=== PATIENT | female | born 1955 | race African-American/Black ===

== ENCOUNTER 2016-10-10 10:10 | Outpatient (CLI) | payer MEDICARE, OTHER ==
[~2016-10-10 10:10] MED LIST: ALEN1TAB3 PO; ASPI81TA2 PO; CEFE1FRO IV; FERR325T28 PO; GENT30CR TP
== END 2016-10-10 23:59 | disposition home or self-care (01) ==
LOC: WOU 10:10
PROVIDERS: ATTEND Podiatrist Foot & Ankle Surgery
DX: I89.0 Lymphedema, not elsewhere classified (principal); I87.313 Chronic venous hypertension (idiopathic) with ulcer of bilateral lower extremity; L97.821 Non-pressure chronic ulcer of other part of left lower leg limited to breakdown of skin; L97.811 Non-pressure chronic ulcer of other part of right lower leg limited to breakdown of skin; E66.9 Obesity, unspecified; Z68.35 Body mass index [BMI] 35.0-35.9, adult; I10 Essential (primary) hypertension; E05.90 Thyrotoxicosis, unspecified without thyrotoxic crisis or storm
CPT/HCPCS: A6253; A6402

== ENCOUNTER 2016-11-21 09:40 | Outpatient (CLI) | payer MEDICARE, OTHER | END 2016-11-21 23:59 | disposition left against medical advice (07) | LOC: WOU 09:40 | PROVIDERS: ATTEND Podiatrist Foot & Ankle Surgery | DX: I87.323 Chronic venous hypertension (idiopathic) with inflammation of bilateral lower extremity (principal); L03.115 Cellulitis of right lower limb; L03.116 Cellulitis of left lower limb; I89.0 Lymphedema, not elsewhere classified; I10 Essential (primary) hypertension; E03.9 Hypothyroidism, unspecified; M81.0 Age-related osteoporosis without current pathological fracture; G70.9 Myoneural disorder, unspecified; Z79.899 Other long term (current) drug therapy; L29.9 Pruritus, unspecified | CPT/HCPCS: A6253; A6402; G0463 ==

== ENCOUNTER 2016-11-27 10:44 | Inpatient (IN) | payer MEDICARE, OTHER ==
[~2016-11-27] VITALS: Ht 170.2 cm; Wt 105.2 kg
--- NOTE | 2016-11-27 10:50 | NUR ---
pt ambulatory to er bed 12. came from wound care center and was sent by wound doctor to er for wound eval. presents to er w/ ble wound. foul odor w/ drainage noted. gowned and placed on monitor. vss. awaiting md connelly.
--- NOTE | 2016-11-27 11:17 | NUR ---
dr moody at bedside for eval.
[2016-11-27] MEDS ORDERED: IV NS 0.9% 1,000 ML BAG IV ONE (11:30)
[2016-11-27 11:50] LABS: BASOPHILS # (AUTO) 0.4 /CMM (0.0-0.2); BASOPHILS % (AUTO) 4.5 % (0.0-2.0); EOSINOPHILS # (AUTO) 0.7 /CMM (0.0-0.7); EOSINOPHILS % (AUTO) 7.1 % (0.0-6.0); HEMATOCRIT 28 % (33-45); HEMOGLOBIN 9.1 g/dL (11.5-14.8); LYMPHOCYTES # (AUTO) 1.7 /CMM (0.8-4.8); MEAN CORPUSCULAR HEMOGLOBIN 25 PG (26.0-33.0); MEAN CORPUSCULAR HGB CONC 33 g/dl (31.0-36.0); MEAN CORPUSCULAR VOLUME 76 fL (82-100); MONOCYTES # (AUTO) 0.8 /CMM (0.1-1.30); MONOCYTES % (AUTO) 8.2 % (2.0-12.0); NEUTROPHILS # (AUTO) 6.2 /CMM (1.8-8.9); NEUTROPHILS % (AUTO) 63.2 % (43.0-81.0); PLATELET COUNT (AUTO) 276 /CMM (150-450); RDW COEFFICIENT OF VARIATION 16.4 (11.5-15.0); RED BLOOD CELL COUNT(AUTO) 3.65 MIL/uL (4.0-5.2); WHITE BLOOD COUNT (AUTO) 9.8 K/uL (4.3-11.0)
--- NOTE | 2016-11-27 11:51 | NUR ---
PATIENT ASSIGNED TO MS 204-1
[2016-11-27 11:59] LABS: CALCIUM, SERUM 8.7 mg/dL (8.5-10.1); CARBON DIOXIDE 22 mmol/L (21-32); CHLORIDE 106 mmol/L (98-107); CREATININE 1.3 mg/dL (0.6-1.3); GFR 50 mL/min (>60); GLUCOSE 101 mg/dL (74-106); POTASSIUM 4.1 mmol/L (3.5-5.1); SODIUM SERUM 138 mmol/L (136-145); UREA NITROGEN, BLOOD 20 mg/dL (7-18)
[2016-11-27 12:02] LABS: INR 0.95 (0.87-1.13); PROTHROMBIN TIME 9.9 SECS (9.5-12.7)
[2016-11-27 12:04] LABS: ALANINE AMINOTRANSFERASE 7 U/L (12-78); ALBUMIN 2.7 g/dL (3.4-5.0); ALKALINE PHOSPHATASE 57 U/L (46-116); ASPARTATE AMINOTRANSFERASE 10 U/L (15-37); BILIRUBIN,DIRECT 0.1 mg/dL (0.0-0.2); BILIRUBIN,TOTAL 0.2 mg/dL (0.2-1.0); TOTAL PROTEIN, SERUM 6.9 g/dL (6.4-8.2)
[2016-11-27 12:06] LABS: TROPONIN I < 0.017 ng/mL (0.00-0.056)
[2016-11-27] MEDS ORDERED: IV SET PRIMARY PUMP SET 1 EA INFUS.SET MC ONE (12:08)
[2016-11-27 12:16] LABS: LACTIC ACID 0.7 mmol/L (0.4-2.0)
--- NOTE | 2016-11-27 12:27 | NUR ---
report given to alcides. awaiting transfer to floor.
[2016-11-27] MEDS ORDERED: CEFEPIME 1 GM VIAL IM ONE (12:30)
[2016-11-27] MEDS ORDERED: CEFEPIME 1 GM in IV D5W 50 ML IV ONE (12:30)
[2016-11-27] MEDS ORDERED: GENTAMICIN 80 MG in IV D5W 50 ML IV ONE (13:00)
--- NOTE | 2016-11-27 13:15 | NUR ---
MS RN NOTES RECEIVED PT FROM ER, AAOX3, DX LYMPHEDEMA WITH CELLULITIS BOTH LEGS BY DR. FINNEY, O2 SAT 99% AT ROOM AIR. NAD, NO SOB, DENIES PAIN AT THIS TIME. RT WRIST G20 IVHL FLUSHES WELL SITE CLEAR. BOTH LEGS SWOLLEN WITH COBBLESTONE LIKE SKIN LESION, PHOTOS TAKEN, VERY FOUL SMELLING. UNIT ORIENTATION DONE AND USE OF CALL LIGHT. BED LOW LOCKED, NEEDS ANTICIPATED. WILL CONT TO MONITOR.
[2016-11-27 13:30] VITALS: BP 148/85
--- NOTE | 2016-11-27 13:37 | NUR ---
MS RN NOTES DR. DAYNA AGUILERA AT BEDSIDE.
[2016-11-27] MEDS ORDERED: GENTAMICIN 0.1% CREAM 15 GM TUBE TP SCH (14:00)
[2016-11-27] MEDS ORDERED: MAGNESIUM HYDROXIDE 30 ML UDC PO PRN (14:30)
[2016-11-27] MEDS ORDERED: HYDROCODONE/APAP 5/325MG 1 EACH TABLET PO PRN (14:30)
[2016-11-27] MEDS ORDERED: Z GUARD REMEDY 2 OZ OINT TP PRN (14:30)
[2016-11-27] MEDS ORDERED: ONDANSETRON HCL/PF 4 MG/2 ML VIAL IVP PRN (14:30)
[2016-11-27] MEDS ORDERED: ACETAMINOPHEN 325 MG TABLET PO PRN (14:30)
[2016-11-27] MEDS ORDERED: GENTAMICIN 80 MG in IV D5W 100 ML IV SCH (14:30)
[2016-11-27] MEDS ORDERED: ZOLPIDEM TARTRATE 5 MG TABLET PO PRN (14:30)
[2016-11-27] MEDS ORDERED: MAG HYDROX/AL HYDROX/SIMETH 30 ML UDC PO PRN (14:30)
--- NOTE | 2016-11-27 14:39 | NUR ---
MS RN NOTES PER PATIENT SHE HAS NO ALLERGY TO BABY ASPIRIN. DR. SHARMIN ROCHA.
[2016-11-27] MEDS ORDERED: FEE PK DOSING 1 MIN EA MC ONE (15:29)
--- NOTE | 2016-11-27 15:56 | NUR ---
MS RN NOTES PERFORMED PRESCRIBED WOUND TREATMENT. FOR DEBRIDEMENT OF BILATERAL LOWER EXTREMITIES VÍCTOR AT 0900. CONSENT SIGNED.
[2016-11-27 16:00] VITALS: BP 136/73
[2016-11-27] MEDS ORDERED: GENTAMICIN 300 MG in IV D5W 100 ML IV SCH (16:00)
[2016-11-27] MEDS: GENTAMICIN 0.1% CREAM 15 GM TUBE TP SCH (16:15)
--- NOTE | 2016-11-27 16:15 | NUR ---
MS RN NOTES STARTED GENTAMICIN IV.
[2016-11-27 18:00] VITALS: BP 136/73
--- NOTE | 2016-11-27 18:31 | NUR ---
MS RN CLOSING NOTES PT RESTING IN BED, AAOX3, O2 SAT 99% AT ROOM AIR. NAD, NO SOB, DENIES PAIN AT THIS TIME. RT WRIST G20 IVHL FLUSHES WELL SITE CLEAR. BOTH LEGS SWOLLEN WITH COBBLESTONE LIKE SKIN LESION, VERY FOUL SMELLING, CDI DRESSING IN PLACE. CALL LIGHT WITHIN REACH. BED LOW LOCKED, ALL NEEDS MET. WILL ENDORSE TO NEXT SHIFT FOR LISA. FOR BILATERAL LOWER LEG WOUND DEBRIDEMENT VÍCTOR 0900. CONSENT SIGNED. NPO POST MIDNIGHT.
--- NOTE | 2016-11-27 19:48 | NUR ---
MS/RN OPENING NOTES PT AWAKE, A/OX3. ON ROOM AIR, DENIES SOB AND PAIN. NO S/S OF DISTRESS NOTED. BREATHING IS EVEN AND UNLABORED. IV TO RIGHT WRIST PATENT AND INTACT. PT AWARE ABOUT BILATERAL LOWER EXTREMITY DEBRIDEMENT TOMORROW MORNING (DRESSINGS C/D/I), AWARE ABOUT NPO STATUS POST MIDNIGHT. CONSENTS SIGNED AND FLAGGED IN THE CHART. BED IN LOW/LOCKED POSITION, CALL LIGHT IN REACH. WILL CONTINUE TO MONITOR
[2016-11-27 20:00] VITALS: BP 111/63
--- NOTE | 2016-11-28 00:30 | NUR ---
MS/RN NOTES LAB CAME TO DRAW BLOOD, GENTAMICIN TROUGH.
--- NOTE | 2016-11-28 03:00 | NUR ---
MS/RN NOTES PT ASLEEP, BREATHING EVEN AND UNLABORED. WILL CONTINUE TO MONITOR
[2016-11-28 06:43] LABS: EOSINOPHILS # (AUTO) 1.1 /CMM (0.0-0.7); EOSINOPHILS % (AUTO) 11.6 % (0.0-6.0); HEMATOCRIT 30 % (33-45); HEMOGLOBIN 9.6 g/dL (11.5-14.8); LYMPHOCYTES # (AUTO) 1.6 /CMM (0.8-4.8); LYMPHOCYTES % (AUTO) 17.1 % (20.0-44.0); MEAN CORPUSCULAR HEMOGLOBIN 24 PG (26.0-33.0); MEAN CORPUSCULAR HGB CONC 32 g/dl (31.0-36.0); MEAN CORPUSCULAR VOLUME 77 fL (82-100); MONOCYTES # (AUTO) 0.6 /CMM (0.1-1.30); MONOCYTES % (AUTO) 6.2 % (2.0-12.0); NEUTROPHILS % (AUTO) 65.1 % (43.0-81.0); PLATELET COUNT (AUTO) 204 /CMM (150-450); RDW COEFFICIENT OF VARIATION 18.2 (11.5-15.0); RED BLOOD CELL COUNT(AUTO) 3.91 MIL/uL (4.0-5.2); WHITE BLOOD COUNT (AUTO) 9.3 K/uL (4.3-11.0)
[2016-11-28 07:03] LABS: CALCIUM, SERUM 8.3 mg/dL (8.5-10.1); CREATININE 1.1 mg/dL (0.6-1.3); PHOSPHORUS 3.1 mg/dL (2.5-4.9); POTASSIUM 4.9 mmol/L (3.5-5.1)
--- NOTE | 2016-11-28 07:18 | NUR ---
MS/RN CLOSING NOTES PT AWAKE, A/OX3. ON ROOM AIR, NO SOB OR DISTRESS NOTED. DENIES PAIN AT THIS TIME. BREATHING EVEN AND UNLABORED. IV TO RIGHT WRIST PATENT AND INTACT. ON NPO STATUS FOR BILATERAL LOWER EXTREMITY DEBRIDEMENT TODAY AT 0900. CONSENTS/CHECKLIST SIGNED AND FLAGGED IN THE CHART. PT INSISTED THAT SHE PERFORM SPONGE BATH HERSELF. ASSISTED NEEDED. WOUND CARE PROVIDED. BED IN LOW/LOCKED POSITION, CALL LIGHT IN REACH. ENCOURAGE PT TO UTILIZE CALL LIGHT FOR ASSISTANCE. MADE PT COMFORTABLE AND ALL NEEDS MET THROUGHOUT SHIFT. ENDORSED TO AM SHIFT FOR LISA.
--- NOTE | 2016-11-28 07:20 | NUR ---
MS RN INITIAL NOTES REPORT RECEIVED AT THE BEDSIDE. PATIENT IS RESTING COMFORTABLY IN BED. NO SOB OR DISTRESS NOTED AT THIS TIME. PATIENT DENIES PAIN. PATIENT STATES SHE HAS BEEN NPO SINCE LAST NIGHT FOR SURGERY TODAY. BED IN A LOW POSITION, CALL LIGHT WITHIN PATIENT REACH. WILL CONTINUE TO MONITOR.
--- NOTE | 2016-11-28 07:28 | NUR ---
MS RN NOTES HOLDING MORNING ORAL MEDS PATIENT IS DUE TO GO TO OR AT 0900. WILL ADMIN ON PATIENT RETURN.
[2016-11-28] MEDS ORDERED: ALENDRONATE 70 MG TABLET PO SCH (07:30)
[2016-11-28 08:00] VITALS: BP 103/63
[2016-11-28] MEDS ORDERED: BUPIVACAINE MPF 0.5% W/EPI INJ 30 ML VIAL ONE (08:01)
[2016-11-28] MEDS ORDERED: LIDOCAINE HCL/PF 1% 30 ML SDV ONE (08:01)
[2016-11-28] MEDS: GENTAMICIN 0.1% CREAM 15 GM TUBE TP SCH (08:08)
--- NOTE | 2016-11-28 08:39 | NUR ---
MS RN NOTES PATIENT TAKEN OFF FLOOR FOR SURGERY.
[2016-11-28] MEDS ORDERED: FENTANYL PF 100MCG/2ML AMPUL ONE (08:50)
[2016-11-28] MEDS ORDERED: MIDAZOLAM HCL 2 MG/2ML VIAL ONE (08:50)
[2016-11-28] MEDS ORDERED: DAKINS HALF STRENGTH (0.25%) 480 ML BOTTLE TOP ONE ×2 (10:30)
[2016-11-28] MEDS ORDERED: SECONDARY IV SET 1 EA INFUS.SET MC ONE ×2 (11:07→16:05)
[2016-11-28] MEDS: CEFEPIME 1 GM in IV D5W 50 ML IV SCH (11:08)
[2016-11-28] MEDS ORDERED: IV SET PRIMARY PUMP SET 1 EA INFUS.SET MC ONE (11:08)
[2016-11-28] MEDS: ASPIRIN 81 MG TAB.CHEW PO SCH (11:48)
[2016-11-28] MEDS: FERROUS SULFATE (325 MG) 325 MG/TAB TABLET PO SCH (11:49)
[2016-11-28 16:00] VITALS: BP 126/65
[2016-11-28] MEDS: GENTAMICIN 400 MG in IV D5W 100 ML IV SCH ×2 (16:24→18:26)
[2016-11-28] MEDS: LACTOBACILLUS RHAMNOSUS GG 1 EACH CAP.SPRINK PO SCH (16:24)
--- NOTE | 2016-11-28 16:45 | NUR ---
ms rn notes WAS TO HANG GENTAMICIN IV PER MD ORDER. WHEN FLUSHED, FOUND THAT PATIENT IV IS INFILTRATED. ATTEMPTED TO INSERT A NEW IV FOUR TIMES AND WAS UNSUCCESSFULL. CALLED DR FINNEY WHO ORDERED A MIDLINE. ORDERS PLACED AND WARD MAID CALLED. WILL INFORM PHARMACY OF LATE GENT ADMISSION.
--- NOTE | 2016-11-28 16:50 | NUR ---
MS RN NOTES CALLED PHARMACY TO INFORM OF THE LATE GENTAMICIN ADMIN THERE IS CURRENTLY NO IV ACCESS. THEY ADVISED TO HAVE THEM INFORMED WHEN THE DOES IS HUNG SO THAT TIMES CAN BE CHANGED FOR ADMIN AND THE TROUGH LATER TONIGHT. DANILO, NURSING SUPERINTENDENT GENERATING PLANT, IS INFORMING MIDLINE NURSE OF NEED FOR INSERTION.
--- NOTE | 2016-11-28 17:55 | NUR ---
MS RN NOTES RECEIVED CALL FROM DANILO NURSING PETROLEUM GEOLOGY FACULTY MEMBER. MIDLINE NURSE IS IN ROUTE. APPROXIMATE ARRIVAL 30MINS.
--- NOTE | 2016-11-28 19:05 | NUR ---
MS RN CLOSING NOTES NO SIGNIFICANT CHANGES IN PATIENT CONDITION THROUGHOUT THE SHIFT. PATIENT IS RESTING COMFORTABLY IN BED. NO SOB OR DISTRESS NOTED. PATIENT DENIES PAIN. BED IN A LOW POSITION, CALL LIGHT WITHIN PATIENT REACH. WILL ENDORSE FOR LISA.
--- NOTE | 2016-11-28 19:25 | NUR ---
MS/RN OPENING NOTES PT AWAKE, A/OX4. ON ROOM AIR, BREATHING EVEN AND UNLABORED. DENIES SOB, NO S/S OF DISTRESS NOTED. DENIES PAIN AT THIS TIME. CHELE MIDLINE PATENT AND INTACT. DRESSING TO BILATERAL LOWER EXTREMITIES C/D/I. GENTAMICIN TROUGH SCHEDULED FOR 0200 TONIGHT. BED IN LOW/LOCKED POSITION WITH CALL LIGHT IN REACH. BED RAILS UPX2. ENCOURAGED PT TO UTILIZE CALL LIGHT FOR ASSISTANCE. VERBALIZED UNDERSTANDING. WILL CONTINUE TO MONITOR
[2016-11-28 20:00] VITALS: BP 109/48
[2016-11-28 21:08] VITALS: BP 109/48
--- NOTE | 2016-11-28 21:17 | NUR ---
MS/RN NOTES PT NOTED TO HAVE TEMPERATURE= 99.2F COOLING MEASURES IMPLEMENTED. WILL RECHECK
--- NOTE | 2016-11-29 02:57 | NUR ---
MS/RN NOTES RECEIVED CRITICAL LAB VALUE FROM TREY IN THE LAB. GENTAMICIN TROUGH=7.[address] BARBER AND MADE AWARE THAT BUN=15, CR=1.1 ADVISED TO HOLD NEXT DOSE, F/U PHARMACY IN AM. WILL CARRY OUT ACCORDINGLY.
--- NOTE | 2016-11-29 04:00 | NUR ---
MS/RN NOTES DRESSINGS TO BILATERAL LEGS SOILED. WOUND CARE AND DRESSING CHANGE PROVIDED.
--- NOTE | 2016-11-29 07:05 | NUR ---
MS/RN CLOSING NOTES PT AWAKE, A/OX3, ON ROOM AIR, NO SOB OR DISTRESS NOTED. BREATHING EVEN AND UNLABORED. DENIES PAIN. CHELE MIDLINE PATENT AND INTACT RUNNING IVF AT TKO. WOUND TREATMENT PROVIDED. WOUND CX PENDING. DR. BARBER NOTIFIED OF GENTAMICIN TROUGH=7.5 WITH ORDERS TO HOLD NEXT DOSE AND F/U PHARMACY IN AM. BED IN LOW/LOCKED POSITION WITH CALL LIGHT IN REACH. BED RAILS UPX2. HOB ELEVATED. ALL NEEDS MET AND ATTENDED TO. MADE PT COMFORTABLE THROUGHOUT SHIFT. WILL ENDORSE TO AM SHIFT LISA.
--- NOTE | 2016-11-29 07:46 | NUR ---
RN OPEN NOTES RECEIVED REPORT FROM CHECK EXAMINER NURSE. PATIENT IS IN BED, ALERT AND ORIENTED TO NAME, TIME AND PLACE. BED IN LOW POSITION, LOCKED AND 2 SIDE RAILS ARE UP. NO SIGNS AND SYMPTOMS OF DISTRESS. DENIED PAIN. IV SITE IS POTENT AND INTACT. WILL CONTINUE TO MONITOR AND ASSESS PATIENT.
[2016-11-29 07:51] LABS: BASOPHILS % (AUTO) 0.4 % (0.0-2.0); EOSINOPHILS # (AUTO) 0.8 /CMM (0.0-0.7); EOSINOPHILS % (AUTO) 9.4 % (0.0-6.0); HEMATOCRIT 25 % (33-45); HEMOGLOBIN 7.6 g/dL (11.5-14.8); LYMPHOCYTES % (AUTO) 11.6 % (20.0-44.0); MEAN CORPUSCULAR HEMOGLOBIN 24 PG (26.0-33.0); MEAN CORPUSCULAR HGB CONC 31 g/dl (31.0-36.0); MEAN CORPUSCULAR VOLUME 78 fL (82-100); MONOCYTES # (AUTO) 0.5 /CMM (0.1-1.30); MONOCYTES % (AUTO) 6.4 % (2.0-12.0); NEUTROPHILS # (AUTO) 6.1 /CMM (1.8-8.9); NEUTROPHILS % (AUTO) 72.2 % (43.0-81.0); RDW COEFFICIENT OF VARIATION 18.3 (11.5-15.0); RED BLOOD CELL COUNT(AUTO) 3.13 MIL/uL (4.0-5.2); WHITE BLOOD COUNT (AUTO) 8.5 K/uL (4.3-11.0)
[2016-11-29 08:00] VITALS: BP 104/56
[2016-11-29 08:26] LABS: CALCIUM, SERUM 8.1 mg/dL (8.5-10.1); CREATININE 1.1 mg/dL (0.6-1.3); POTASSIUM 4.4 mmol/L (3.5-5.1)
[2016-11-29] MEDS: ASPIRIN 81 MG TAB.CHEW PO SCH (08:28)
[2016-11-29] MEDS: FERROUS SULFATE (325 MG) 325 MG/TAB TABLET PO SCH (08:28)
[2016-11-29] MEDS: LACTOBACILLUS RHAMNOSUS GG 1 EACH CAP.SPRINK PO SCH ×2 (08:28→16:25)
[2016-11-29 08:29] LABS: ANISOCYTOSIS 1+; EOSINOPHILS % (MANUAL) 4 % (0-4); HYPOCHROMASIA 1+; LYMPHOCYTES % (MANUAL) 14 % (16-48); MONOCYTES % (MANUAL) 3 % (0-11.0); NEUTROPHILS % (MANUAL) 79 (42-76); PLATELET ESTIMATE PLATELET CLUMPS SEEN
[2016-11-29] MEDS: DAKINS HALF STRENGTH (0.25%) 480 ML BOTTLE TOP SCH (08:30)
[2016-11-29 08:45] LABS: PLATELET COUNT (AUTO) 97 /CMM (150-450)
[2016-11-29] MEDS: CEFEPIME 1 GM in IV D5W 50 ML IV SCH (11:46)
--- NOTE | 2016-11-29 12:30 | NUR ---
RN NOTES DR FINNEY REORDERED CBC TO REASSESS H&H. DOCTOR REQUESTED A CALL BACK WHEN RESULTS ARE BACK
--- NOTE | 2016-11-29 12:35 | NUR ---
RN NOTES / ABX PER DR FINNEY, DO NOT HOLD ANTIBIOTIC GENTAMICIN ON 11/30 0600. PHARMACY ADJUSTED THE FREQUENCY TO Q36 HOURS. THROUGH WILL BE REDRAWN ON 11/30
[2016-11-29 12:57] LABS: BASOPHILS # (AUTO) 0.1 /CMM (0.0-0.2); BASOPHILS % (AUTO) 1.3 % (0.0-2.0); EOSINOPHILS # (AUTO) 1.2 /CMM (0.0-0.7); EOSINOPHILS % (AUTO) 13.9 % (0.0-6.0); HEMATOCRIT 31 % (33-45); HEMOGLOBIN 9.8 g/dL (11.5-14.8); LYMPHOCYTES # (AUTO) 1.3 /CMM (0.8-4.8); LYMPHOCYTES % (AUTO) 15.9 % (20.0-44.0); MEAN CORPUSCULAR HEMOGLOBIN 25 PG (26.0-33.0); MEAN CORPUSCULAR HGB CONC 32 g/dl (31.0-36.0); MEAN CORPUSCULAR VOLUME 78 fL (82-100); MONOCYTES # (AUTO) 0.5 /CMM (0.1-1.30); NEUTROPHILS # (AUTO) 5.3 /CMM (1.8-8.9); NEUTROPHILS % (AUTO) 62.9 % (43.0-81.0); PLATELET COUNT (AUTO) 281 /CMM (150-450); RED BLOOD CELL COUNT(AUTO) 3.98 MIL/uL (4.0-5.2); WHITE BLOOD COUNT (AUTO) 8.5 K/uL (4.3-11.0)
--- NOTE | 2016-11-29 14:00 | NUR ---
RN NOTES DR FINNEY MADE AWARE OF H&H RESULTS
[2016-11-29 16:00] VITALS: BP 99/57
--- NOTE | 2016-11-29 18:40 | NUR ---
RN CLOSING NOTES PATIENT IS ON BED, ALERT AND ORIENTED TO NAME, TIME AND PLACE. NO SIGNS AND SYMPTOMS OF DISTRESS. DENIED PAIN. BED IN LOW POSITION, LOCKED AND TWO SIDE RAILS ARE UP. IV SITE IS POTENT AND INTACT. WILL ENDORSE TO [facility]LE ASC[employer] CONSULTANT NURSE
--- NOTE | 2016-11-29 19:45 | NUR ---
MS RN NOTE: PATIENT RESTING IN BED, NO ACUTE DISTRESS NOTED. BREATHING EVEN AND UNLABORED, NO SOB NOTED. MIDLINE TO CHELE IN PLACE. BED LOCKED AND IN LOWEST POSITION, CALL LIGHT IN REACH. WILL CONTINUE TO MONITOR.
[2016-11-29 20:01] VITALS: BP 95/44
[2016-11-30] MEDS: GENTAMICIN 400 MG in IV D5W 100 ML IV SCH (05:52)
[2016-11-30 06:14] LABS: EOSINOPHILS # (AUTO) 1.3 /CMM (0.0-0.7); EOSINOPHILS % (AUTO) 18.2 % (0.0-6.0); HEMATOCRIT 26 % (33-45); HEMOGLOBIN 8.3 g/dL (11.5-14.8); LYMPHOCYTES % (AUTO) 14.3 % (20.0-44.0); MEAN CORPUSCULAR HEMOGLOBIN 25 PG (26.0-33.0); MEAN CORPUSCULAR HGB CONC 32 g/dl (31.0-36.0); MEAN CORPUSCULAR VOLUME 77 fL (82-100); MONOCYTES # (AUTO) 0.5 /CMM (0.1-1.30); MONOCYTES % (AUTO) 6.8 % (2.0-12.0); NEUTROPHILS # (AUTO) 4.4 /CMM (1.8-8.9); NEUTROPHILS % (AUTO) 60.7 % (43.0-81.0); PLATELET COUNT (AUTO) 270 /CMM (150-450); RDW COEFFICIENT OF VARIATION 17.9 (11.5-15.0); RED BLOOD CELL COUNT(AUTO) 3.39 MIL/uL (4.0-5.2); WHITE BLOOD COUNT (AUTO) 7.2 K/uL (4.3-11.0)
--- NOTE | 2016-11-30 06:20 | NUR ---
MS RN NOTE: PATIENT RESTING IN BED, NO ACUTE DISTRESS NOTED. BREATHING EVEN AND UNLABORED, NO SOB NOTED. MIDLINE TO CHELE IN PLACE. BED LOCKED AND IN LOWEST POSITION, CALL LIGHT IN REACH. WILL ENDORSE TO DAY NURSE TO CONTINUE WITH PLAN OF CARE.
[2016-11-30 06:40] LABS: CALCIUM, SERUM 7.9 mg/dL (8.5-10.1); POTASSIUM 4.6 mmol/L (3.5-5.1)
--- NOTE | 2016-11-30 07:30 | NUR ---
MS RN AM NOTE: PATIENT IN BED, AAO X 3, S/P DEBRIDEMENT OF BLE 11/28/[address] JONES, CDI DRESSING. ON ROOM AIR, NO ACUTE DISTRESS NOTED. BREATHING EVEN AND UNLABORED, NO SOB NOTED. MIDLINE TO CHELE G18 IN PLACE, CDI DRESSING, SITE CLEAR. AMB WITH ASSIST. REGULAR DIET. BED LOCKED AND IN LOWEST POSITION, CALL LIGHT IN REACH. WILL CONTINUE TO MONITOR.
[2016-11-30 08:00] VITALS: BP 107/59
[2016-11-30 08:07] LABS: ANISOCYTOSIS 1+; HYPOCHROMASIA 1+
[2016-11-30 08:08] LABS: PLATELET ESTIMATE ADEQUATE
[2016-11-30] MEDS: ASPIRIN 81 MG TAB.CHEW PO SCH (08:33)
[2016-11-30] MEDS: LACTOBACILLUS RHAMNOSUS GG 1 EACH CAP.SPRINK PO SCH ×2 (08:33→17:11)
[2016-11-30] MEDS: FERROUS SULFATE (325 MG) 325 MG/TAB TABLET PO SCH (08:33)
[2016-11-30] MEDS: DAKINS HALF STRENGTH (0.25%) 480 ML BOTTLE TOP SCH (08:35)
--- NOTE | 2016-11-30 09:30 | NUR ---
MS RN NOTES ADMINISTERED DUE MEDS
[2016-11-30] MEDS: GENTAMICIN 0.1% OINT 15 GM TUBE TP SCH ×2 (09:52→22:58)
[2016-11-30] MEDS: CEFEPIME 1 GM in IV D5W 50 ML IV SCH (11:22)
--- NOTE | 2016-11-30 11:22 | NUR ---
MS RN NOTES STARTED MAXIPIME IV.
[2016-11-30 16:00] VITALS: BP 107/60
[2016-11-30 18:00] VITALS: BP 107/60
--- NOTE | 2016-11-30 18:25 | NUR ---
MS RN CLOSING NOTE: PATIENT RESTING IN BED, AAO X 3, S/P DEBRIDEMENT OF BLE 11/28/[address] JONES, CDI DRESSING. ON ROOM AIR, NO ACUTE DISTRESS NOTED. BREATHING EVEN AND UNLABORED, NO SOB NOTED. MIDLINE TO CHELE G18 IN PL[address], CDI DRESSING, SITE CLEAR. AMB WITH ASSIST. REGULAR DIET. BED LOCKED AND IN LOWEST POSITION, CALL LIGHT IN REACH. ALL NEEDS MET. PERFORMED PRESCRIBED WOUND TREATMENT EARLIER. SEEN BY DR. AGUILERA TODAY. PM CARE DONE. WILL ENDORSE TO NEXT SHIFT FOR LISA.
--- NOTE | 2016-11-30 19:50 | NUR ---
MS RN INITIAL NOTES: RECEIVED REPORT FROM MAURO OWENS. PT ON BED, AWAKE, A/O X3 ON ROOM AIR RESPIRATION EVEN AND UNLABORED, DENIES ANY PAIN OR DISCOMFORT AT THIS TIME. PT S/P DEBRIDEMENT OF BLE ON 11/28/[address] ALLEN, DRESSING IN PLACED, C/D/I, BLE OFFLOADED ON PILLOWS. CHELE MIDLINE IN PLACED, PATENT AND FLUSHING WELL, ON HL. SAFETY PRECAUTION FOR FALL INITIATED, CALL LIGHT IN REACH, WILL CONTINUE TO MONITOR
[2016-11-30 20:00] VITALS: BP 113/62
--- NOTE | 2016-11-30 21:30 | NUR ---
MS RN NOTES: PT'S MEDICATION GENTAMICIN OINTMENT NOT AVAILABLE IN THE [facility], CHECKED PT'S CASSETTE AND BED SIDE TABLE, DRAWER AND BASIN BUT OINTMENT TUBE NOT FOUND, FAXED AN ORDER TO GRACIELA STUBBS, APPARENTLY GRACIELA RAHMAN WENT TO THE UNIT, PERSONALLY HANDED THE PAPER AND STATED SHE WILL CHECK IF WE HAVE THIS OINTMENT AND HAVE IT OVERRIDE
[2016-11-30] MEDS ORDERED: GENTAMICIN 0.1% OINT 15 GM TUBE TP ONE (22:25)
--- NOTE | 2016-12-01 | NUR ---
MS RN NOTES: PT SEEN BY DR CONCEPCIÓN GONZALEZ, GIVEN COPIES OF WOUND CULTURE AND DISCUSS ABOUT BEING CANDIDATE FOR "STAY BYOTROL CLEAN", A TYPE OF TOPICAL ANTISEPTIC FOR MDRO ACBA INFECTION/ORGANISM, BECAUSE OF THAT PT EXPRESSES HR GRATITUDE TO , AND STATED IT GIVES HER HOPE
--- NOTE | 2016-12-01 04:45 | NUR ---
MS RN NOTES: CONTACTED LAB REMIND THEM THAT PT HAS GENTAMYCIN TROUGH FOR 0500AM
--- NOTE | 2016-12-01 05:00 | NUR ---
MS RN NOTES: WOUND CARE DONE ORDERED, CLEANSED BLE WITH 1/2 STRENGTH DAKINS SOLUTION, WET TO DRY DRESSING, APPLIED GENTAMYCIN OINTMENT TO BOTH LEGS, THEN PLACED ABD PADS, COVERED WITH KERLIX, THEN SECURED WITH BRIAN WRAP. BLE OFFLOADED
--- NOTE | 2016-12-01 06:00 | NUR ---
MS RN NOTES: PROCESS ENGINEERING INTERN CAME TO DRAW BLOOD, FOR GENTAMYCIN TROUGH
[2016-12-01 06:27] LABS: CALCIUM, SERUM 8.5 mg/dL (8.5-10.1)
--- NOTE | 2016-12-01 06:42 | NUR ---
MS RN NOTES: RECEIVED CALL FROM LAB, TALKED TO MONTSE, STATED RESULT OF GENTAMYCIN TROUGH CAME BACK, REVEAL 2.4.
--- NOTE | 2016-12-01 06:49 | NUR ---
MS RN NOTES: GENTAMYCIN TROUGH 2.4, WILL CALL PHARMACY FR THE RESULT, PHARMACY NEEDS TO ADJUST DOSE/FREQUENCY OF THE SAID MEDICATION, PER SENIOR PAYROLL ADMINISTRATOR NO NEED TO CALL MD,
--- NOTE | 2016-12-01 06:51 | NUR ---
MS RN CLOSING NOTES: PT ON BED, AWAKE, DENIES ANY PAIN OR DISCOMFORT AT THIS TIME. IV ACCESS REMAINS PATENT AND FLUSHING WELL, ON HL. DRESSING REMAINS C/D/I. BLE OFFLOADED. BED BATH PROVIDED BY RICKEY FORRESTER. VS REMAINS STABLE, NEEDS ATTENDED, FOR DC PLANNING IN [place]. WILL ENDORSE TO DAY RN FOR LISA.
--- NOTE | 2016-12-01 07:03 | NUR ---
MS RN NOTES: TALKED TO AMY FROM PHARMACY RELAYED ABOUT GENTAMYCIN TROUGH RESULT, 2.4, PER AMY OKAY TO GIVE THE DOSE/MEDICATION.
[2016-12-01] MEDS: GENTAMICIN 400 MG in IV D5W 100 ML IV SCH (07:11)
--- NOTE | 2016-12-01 07:12 | NUR ---
MS RN NOTES: GENTAMYCIN TROUGH RESULT CAME BACK AND ITS 2.4, CALLED PHARMACY, PER AMY OKAY TO GIVE THE DOSE, UPON SCANNING THE BARCODE, IT DOESNT LET ME SCAN IT, TRIED MULTIPLE TIMES, BUT UINSUCCESSFUL, CHECKED PT'S IDENTIFICATION AND MEDICATION, VERIFIED WITH ANOTHER RN SIGIFREDO, ADMINISTER THE MEDICATION AT THIS TIME.
--- NOTE | 2016-12-01 07:30 | NUR ---
MS RN AM NOTE: PATIENT IN BED, AAO X 3, S/P DEBRIDEMENT OF BLE 11/28/[address] JONES, CDI DRESSING. ON ROOM AIR, NO ACUTE DISTRESS NOTED. BREATHING EVEN AND UNLABORED, NO SOB NOTED. DENIES PAIN. MIDLINE TO CHELE G18 IN PLACE, CDI DRESSING, SITE CLEAR. AMB WITH ASSIST. REGULAR DIET. BED LOCKED AND IN LOWEST POSITION, CALL LIGHT IN REACH. WILL CONTINUE TO MONITOR.
[2016-12-01 08:00] VITALS: BP 116/69
[2016-12-01] MEDS: LACTOBACILLUS RHAMNOSUS GG 1 EACH CAP.SPRINK PO SCH ×2 (08:29→16:26)
[2016-12-01] MEDS: FERROUS SULFATE (325 MG) 325 MG/TAB TABLET PO SCH (08:29)
[2016-12-01] MEDS: ASPIRIN 81 MG TAB.CHEW PO SCH (08:29)
[2016-12-01] MEDS: DAKINS HALF STRENGTH (0.25%) 480 ML BOTTLE TOP SCH (08:30)
[2016-12-01] MEDS: GENTAMICIN 0.1% OINT 15 GM TUBE TP SCH ×2 (08:37→21:51)
[2016-12-01] MEDS: CEFEPIME 1 GM in IV D5W 50 ML IV SCH (11:25)
--- NOTE | 2016-12-01 11:25 | NUR ---
MS RN NOTES STARTED MAXIPIME IV.
[2016-12-01 16:00] VITALS: BP 115/63
[2016-12-01 16:50] VITALS: BP 115/63
[2016-12-01 18:00] VITALS: BP 115/63
--- NOTE | 2016-12-01 18:27 | NUR ---
MS RN CLOSING NOTE: PATIENT RESTING IN BED, AAO X 3, S/P DEBRIDEMENT OF BLE 11/28/[address] JONES, CDI DRESSING. ON ROOM AIR, NO ACUTE DISTRESS NOTED. BREATHING EVEN AND UNLABORED, NO SOB NOTED. MIDLINE TO CHELE G18 IN PL[address], CDI DRESSING, SITE CLEAR. AMB WITH ASSIST. REGULAR DIET. BED LOCKED AND IN LOWEST POSITION, CALL LIGHT IN REACH. ALL NEEDS MET. PATIENT REQUESTED TO HAVE PRESCRIBED WOUND TREATMENT TO BE DONE LATER. PM CARE DONE. WILL ENDORSE TO NEXT SHIFT FOR LISA.
--- NOTE | 2016-12-01 19:57 | NUR ---
MS RN INITIAL NOTES: RECEIVED REPORT FROM MAURO OWENS. PT ON BED, AWAKE, A/O X4 ON ROOM AIR RESPIRATION EVEN AND UNLABORED, DENIES ANY PAIN OR DISCOMFORT AT THIS TIME. CHELE MIDLINE IN PLACED, PATENT AND FLUSHING WELL, ON HL. S/P DEBRIDEMENT OF BLE ON 11/28/[address] ALLEN, DRESSING C/D/I, BLE OFFLOADED ON PILLOWS. SAFETY PRECAUTION FOR FALL INITIATED, CALL LIGHT IN REACH, WILL CONTINUE TO MONITOR
[2016-12-01 20:00] VITALS: BP 111/49
--- NOTE | 2016-12-02 04:00 | NUR ---
MS RN NOTES: WOUND CARE DONE ORDERED,
[2016-12-02] MEDS ORDERED: D5W IV SCH (06:00)
[2016-12-02] MEDS ORDERED: GENTAMICIN IV SCH (06:00)
--- NOTE | 2016-12-02 06:29 | NUR ---
ms rn closing notes: pt on bed, awake, denies any pain or discomfort throughout the shift. bilateral leg dressing remain c/d/i, ble offloaded. mervin midline remains patent and flushing well, on hl. for possible dc today, exit care completed. vs remains stable, needs attended. safety precautions for fall remains engaged, call light in reach, will endorse to day rn for ruchi.
[2016-12-02 06:30] LABS: BASOPHILS % (AUTO) 0.3 % (0.0-2.0); EOSINOPHILS # (AUTO) 1.8 /CMM (0.0-0.7); EOSINOPHILS % (AUTO) 19.7 % (0.0-6.0); HEMATOCRIT 26 % (33-45); HEMOGLOBIN 8.4 g/dL (11.5-14.8); LYMPHOCYTES # (AUTO) 1.2 /CMM (0.8-4.8); LYMPHOCYTES % (AUTO) 12.8 % (20.0-44.0); MEAN CORPUSCULAR HEMOGLOBIN 24 PG (26.0-33.0); MEAN CORPUSCULAR HGB CONC 32 g/dl (31.0-36.0); MEAN CORPUSCULAR VOLUME 77 fL (82-100); MONOCYTES # (AUTO) 0.6 /CMM (0.1-1.30); MONOCYTES % (AUTO) 6.6 % (2.0-12.0); NEUTROPHILS # (AUTO) 5.6 /CMM (1.8-8.9); NEUTROPHILS % (AUTO) 60.6 % (43.0-81.0); PLATELET COUNT (AUTO) 305 /CMM (150-450); RDW COEFFICIENT OF VARIATION 18.3 (11.5-15.0); RED BLOOD CELL COUNT(AUTO) 3.44 MIL/uL (4.0-5.2); WHITE BLOOD COUNT (AUTO) 9.3 K/uL (4.3-11.0)
[2016-12-02 06:50] LABS: CREATININE 1.2 mg/dL (0.6-1.3); POTASSIUM 4.2 mmol/L (3.5-5.1)
--- NOTE | 2016-12-02 07:30 | NUR ---
MS/RN Patient received Patient received from material handler 1st shift. No needs at this time, all questions and concerns addressed. Bed in low setting, brakes locked, side rails x3 in upright position. Will continue to monitor and ensure safety.
[2016-12-02 08:00] VITALS: BP 119/65
[2016-12-02] MEDS: FERROUS SULFATE (325 MG) 325 MG/TAB TABLET PO SCH (08:21)
[2016-12-02] MEDS: LACTOBACILLUS RHAMNOSUS GG 1 EACH CAP.SPRINK PO SCH ×2 (08:21→16:27)
[2016-12-02] MEDS: ASPIRIN 81 MG TAB.CHEW PO SCH (08:21)
[2016-12-02] MEDS: DAKINS HALF STRENGTH (0.25%) 480 ML BOTTLE TOP SCH (08:22)
[2016-12-02] MEDS: GENTAMICIN 0.1% OINT 15 GM TUBE TP SCH ×2 (08:22→21:00)
--- NOTE | 2016-12-02 09:00 | NUR ---
MS/RN Medications Morning medications adminstered as ordered.
[2016-12-02] MEDS: CEFEPIME 1 GM in IV D5W 50 ML IV SCH (11:56)
--- NOTE | 2016-12-02 12:30 | NUR ---
MS/RN IVAB IVAB hung as ordered, no reaction observed.
[2016-12-02 16:00] VITALS: BP 119/69
--- NOTE | 2016-12-02 17:20 | NUR ---
MS/RN MRSA Received call from [facility] - patient is MRSA positive in wound. Isolation cart placed outside room.
--- NOTE | 2016-12-02 18:15 | NUR ---
MS/RN End note No changes at this time. All needs attended, patient updated as to plan of care and in agreement. Will endorse to manager night.
[2016-12-02] MEDS ORDERED: FEE PK DOSING 1 MIN EA MC ONE (19:51)
[2016-12-02 20:00] VITALS: BP 99/147
--- NOTE | 2016-12-02 20:00 | NUR ---
RECEIVED PATIENT IN BED, ALERT AND ORIENTED X4, CALM, NO SOB, ON ROOM AIR, REPORTED PAIN TO LOWER EXTREMITIES OF 4/10, REFUSED PAIN MEDICATION, PER PATIENT "MEDICATION MAKES ME LOSE MY BALANCE." RIGHT UPPER ARM MIDLINE PATENT, DRESSING CLEAN AND INTACT. KEPT SAFE AND COMFORTABLE, CALL LIGHT WITHIN REACH
[2016-12-02] MEDS: LEVOFLOXACIN (500MG) 500 MG TABLET PO SCH (20:35)
[2016-12-02] MEDS ORDERED: IV NS 0.9% 250 ML IV ONE (20:40)
[2016-12-02] MEDS ORDERED: IV SET PRIMARY PUMP SET 1 EA INFUS.SET MC ONE (20:40)
[2016-12-02] MEDS ORDERED: SECONDARY IV SET 1 EA INFUS.SET MC ONE (20:41)
[2016-12-02] MEDS: VANCOMYCIN 1.25 GM in IV D5W 500 ML IV SCH (20:46)
[2016-12-02 20:54] VITALS: BP 99/47
--- NOTE | 2016-12-03 01:00 | NUR ---
WOUND CARE RENDERED TO BILATERAL LOWER EXTREMITIES
--- NOTE | 2016-12-03 03:30 | NUR ---
CALLED RT FOR SCHEDULED BREATHING TX, PER TYREE CARVAJAL ADMINISTER Addendum: 12/03/16 at 0637 by GUERITA TOMAS RN DISREGARD NOTES ABOVE, NOT INTENDED FOR PATIENT.
--- NOTE | 2016-12-03 06:37 | NUR ---
PATIENT IS ALERT AND AWAKE, NO SOB, NO DISTRESS, NO CHANGE OF CONDITION DURING SHIFT, ALL DUE MEDICATIONS GIVEN, CALL LIGHT WITHIN REACH.
[2016-12-03 06:49] LABS: CALCIUM, SERUM 7.9 mg/dL (8.5-10.1); POTASSIUM 4.3 mmol/L (3.5-5.1)
--- NOTE | 2016-12-03 07:30 | NUR ---
MS/RN Patient received Patient received from night assistant. No needs at this time, denies any pain or discomfort. Dressings to bilateral lower extremities dry and intact. All needs attended at this time, will continue to monitor and ensure safety.
[2016-12-03 08:00] VITALS: BP 120/64
--- NOTE | 2016-12-03 08:43 | NUR ---
MS/RN Medications Morning medications administered as ordered.
[2016-12-03] MEDS: LACTOBACILLUS RHAMNOSUS GG 1 EACH CAP.SPRINK PO SCH ×2 (08:44→16:40)
[2016-12-03] MEDS: FERROUS SULFATE (325 MG) 325 MG/TAB TABLET PO SCH (08:45)
[2016-12-03] MEDS: ASPIRIN 81 MG TAB.CHEW PO SCH (08:45)
[2016-12-03] MEDS: RIFAMPIN 300 MG CAPSULE PO SCH (08:45)
[2016-12-03] MEDS: DAKINS HALF STRENGTH (0.25%) 480 ML BOTTLE TOP SCH (08:57)
--- NOTE | 2016-12-03 11:45 | NUR ---
MS/RN S/B Dr Grewal Seen by Dr Grewal - discharge planning to SNF.
--- NOTE | 2016-12-03 12:35 | NUR ---
MS/RN S/B Dr Ellis Seen by Dr Ellis - continue with current wound care.
[2016-12-03] MEDS: VANCOMYCIN 1.25 GM in IV D5W 500 ML IV SCH (13:57)
[2016-12-03 16:30] VITALS: BP 116/62
[2016-12-03 17:56] VITALS: BP 116/62
--- NOTE | 2016-12-03 18:44 | NUR ---
MS/RN End note Per correctional casework specialist, patient will be discharged tomorrow to [facility] Dressing changed, extra ointment ordered for dressing change tomorrow. All questions and concerns addressed, will endorse to scene shifter.
[2016-12-03 20:00] VITALS: BP 120/67
--- NOTE | 2016-12-03 20:10 | NUR ---
RECEIVED PATIENT IN BED, ALERT AND ORIENTED X4, CALM, NO SOB, NO RESPIRATORY DISTRESS, PER PATIENT ABLE TO TOLERATE PAIN TO BLE AT 4/10, OFFERED PAIN MEDICATION, REFUSED. DRESSING TO BLE IS CLEAN AND DRY. ON CONTACT ISOLATION, MRSA TO BLE WOUNDS, NEEDS ATTENDED, CALL LIGHT WITHIN REACH.
[2016-12-03 20:43] VITALS: BP 120/67
[2016-12-03] MEDS: GENTAMICIN 0.1% OINT 15 GM TUBE TP SCH ×2 (21:00→21:37)
--- NOTE | 2016-12-03 21:30 | NUR ---
LEVAQUIN 500 MG PO GIVEN TO PATIENT. WHEN SCANNED, RN NOT AWARE IT DID NOT GO THROUGH, MEDICATION LABEL DISCARDED, USED MANUAL CODING TO ENTER MEDICATION
[2016-12-03] MEDS: LEVOFLOXACIN (500MG) 500 MG TABLET PO SCH (21:36)
--- NOTE | 2016-12-04 06:37 | NUR ---
PATIENT IN BED, ALERT AND ORIENTED X4, NO SOB, NO ADVERSE CHANGE OF CONDITION DURING SHIFT, BLE DRESSING IS DRY AND CLEAN. NEEDS ATTENDED, CALL LIGHT WITHIN REACH.
[2016-12-04 07:15] LABS: CALCIUM, SERUM 8.1 mg/dL (8.5-10.1); CREATININE 1.1 mg/dL (0.6-1.3); POTASSIUM 4.8 mmol/L (3.5-5.1)
[2016-12-04 08:00] VITALS: BP 119/68
[2016-12-04] MEDS: FERROUS SULFATE (325 MG) 325 MG/TAB TABLET PO SCH (08:25)
[2016-12-04] MEDS: VANCOMYCIN 1.25 GM in IV D5W 500 ML IV SCH (08:25)
[2016-12-04] MEDS: LACTOBACILLUS RHAMNOSUS GG 1 EACH CAP.SPRINK PO SCH (08:25)
[2016-12-04] MEDS: RIFAMPIN 300 MG CAPSULE PO SCH (08:26)
[2016-12-04] MEDS: ASPIRIN 81 MG TAB.CHEW PO SCH (08:26)
[2016-12-04] MEDS: DAKINS HALF STRENGTH (0.25%) 480 ML BOTTLE TOP SCH (08:32)
[2016-12-04] MEDS: GENTAMICIN 0.1% OINT 15 GM TUBE TP SCH (08:32)
[2016-12-04] MEDS ORDERED: RIFA300C2 PO (10:38)
[2016-12-04] MEDS ORDERED: Gentamicin Sulfate TP (10:38)
[2016-12-04] MEDS ORDERED: LACT1CAP72 PO (10:38)
[2016-12-04] MEDS ORDERED: LEVO500T15 PO (10:38)
--- NOTE | 2016-12-04 14:45 | NUR ---
MS/RN: discharge Report gave to GRACIELA Tarango in [facility] at [phone]. all discharge instruction gave to patient, verbalize understand, right upper midline in place, intact and patent. all patient's belongings returned and signed by patient. discharge picture taken on bilateral lower extremities, discharge skin assessment done, no pressure ulcer at sacral. patient is picked up by ambulance staff via gurney with stable condition. patient denies pain, no shortness of breath noted. Addendum: 12/04/16 at 1523 by IBETH JONES RN MS/Notes: spoke to associate brand manager regarding the following up with ATB IV medication per Dr. Grewal.
== END 2016-12-04 14:45 | DRG 264 ==
LOC: ER 10:45 → MEDSG2 11:58
PROVIDERS: ADMIT Family Medicine; ATTEND Family Medicine
PROC: 0JBN0ZZ Excision of Right Lower Leg Subcutaneous Tissue and Fascia, Open Approach (ICD-10-PCS; 2016-11-28)
PROC: 05H533Z Insertion of Infusion Device into Right Subclavian Vein, Percutaneous Approach (ICD-10-PCS; 2016-11-28)
PROC: 0JBP0ZZ Excision of Left Lower Leg Subcutaneous Tissue and Fascia, Open Approach (ICD-10-PCS; principal; 2016-11-28 09:00)
DX: I87.8 Other specified disorders of veins (principal); L03.115 Cellulitis of right lower limb; L97.919 Non-pressure chronic ulcer of unspecified part of right lower leg with unspecified severity; L97.929 Non-pressure chronic ulcer of unspecified part of left lower leg with unspecified severity; L03.116 Cellulitis of left lower limb; E44.1 Mild protein-calorie malnutrition; I89.0 Lymphedema, not elsewhere classified; M81.0 Age-related osteoporosis without current pathological fracture; E66.9 Obesity, unspecified; Z90.710 Acquired absence of both cervix and uterus; R79.89 Other specified abnormal findings of blood chemistry; D50.9 Iron deficiency anemia, unspecified; G70.9 Myoneural disorder, unspecified; E78.5 Hyperlipidemia, unspecified; E88.81 Metabolic syndrome and other insulin resistance; I25.10 Atherosclerotic heart disease of native coronary artery without angina pectoris; I10 Essential (primary) hypertension; L91.0 Hypertrophic scar; Z68.36 Body mass index [BMI] 36.0-36.9, adult
CPT/HCPCS: 36415; 36569; 80048-TC; 80061-TC; 80076-TC; 80170-TC; 83605-TC; 83735-TC; 84100-TC; 84484-TC; 85025-TC; 85730-TC; 87040-TC; 87070-TC; 87075-TC; 87081-TC; 87186-TC; A4217; A4606; A6209; A6253; A6402; A6403; J0692; J1580; J2250; J2405; J2704; J3010; J3370; J3490; J7050; J7060; Z7610

== ENCOUNTER 2016-12-16 10:45 | Outpatient (CLI) | payer MEDICARE, OTHER ==
[~2016-12-16 10:45] MED LIST changes: -CEFE1FRO IV; +Gentamicin Sulfate TP; +LACT1CAP72 PO; +LEVO500T15 PO; +RIFA300C2 PO
== END 2016-12-16 23:59 ==
LOC: WOU 10:45
PROVIDERS: ATTEND Podiatrist Foot & Ankle Surgery
DX: I89.0 Lymphedema, not elsewhere classified (principal); I87.323 Chronic venous hypertension (idiopathic) with inflammation of bilateral lower extremity; L28.0 Lichen simplex chronicus; G70.9 Myoneural disorder, unspecified
CPT/HCPCS: A6253; A6402 ×2; G0463

== ENCOUNTER 2017-01-16 11:00 | Outpatient (CLI) | payer MEDICARE, OTHER | END 2017-01-16 23:59 | disposition home or self-care (01) | LOC: WOU 11:00 | PROVIDERS: ATTEND Podiatrist Foot & Ankle Surgery | DX: I89.0 Lymphedema, not elsewhere classified (principal); I87.393 Chronic venous hypertension (idiopathic) with other complications of bilateral lower extremity; I10 Essential (primary) hypertension; E03.9 Hypothyroidism, unspecified; G70.9 Myoneural disorder, unspecified; Z88.6 Allergy status to analgesic agent; Z88.0 Allergy status to penicillin | CPT/HCPCS: A6253; A6402; G0463 ==

== ENCOUNTER 2017-03-06 11:00 | Outpatient (CLI) | payer MEDICARE, OTHER | END 2017-03-06 23:59 | disposition home or self-care (01) | LOC: WOU 11:00 | PROVIDERS: ATTEND Podiatrist Foot & Ankle Surgery | DX: I89.0 Lymphedema, not elsewhere classified (principal); Z91.19 Patient's noncompliance with other medical treatment and regimen; I10 Essential (primary) hypertension; R46.0 Very low level of personal hygiene; I87.313 Chronic venous hypertension (idiopathic) with ulcer of bilateral lower extremity; L97.929 Non-pressure chronic ulcer of unspecified part of left lower leg with unspecified severity; L97.919 Non-pressure chronic ulcer of unspecified part of right lower leg with unspecified severity; G70.9 Myoneural disorder, unspecified; E05.90 Thyrotoxicosis, unspecified without thyrotoxic crisis or storm | CPT/HCPCS: A6253 ×3; A6402 ×2; G0463 ==

== ENCOUNTER 2017-04-28 10:38 | Outpatient (CLI) | payer MEDICARE, OTHER | END 2017-04-28 23:59 | disposition home or self-care (01) | LOC: WOU 10:38 | PROVIDERS: ATTEND Podiatrist Foot & Ankle Surgery | DX: I89.0 Lymphedema, not elsewhere classified (principal); I87.313 Chronic venous hypertension (idiopathic) with ulcer of bilateral lower extremity; L97.929 Non-pressure chronic ulcer of unspecified part of left lower leg with unspecified severity; L97.919 Non-pressure chronic ulcer of unspecified part of right lower leg with unspecified severity; R46.0 Very low level of personal hygiene; I10 Essential (primary) hypertension; E03.9 Hypothyroidism, unspecified; Z88.0 Allergy status to penicillin; Z88.6 Allergy status to analgesic agent; Z91.041 Radiographic dye allergy status | CPT/HCPCS: A6253; A6402; G0463 ==

== ENCOUNTER 2017-07-07 10:10 | Outpatient (CLI) | payer MEDICARE, OTHER | END 2017-07-07 23:59 | disposition home or self-care (01) | LOC: WOU 10:10 | PROVIDERS: ATTEND Podiatrist Foot & Ankle Surgery | DX: I89.0 Lymphedema, not elsewhere classified (principal); I87.313 Chronic venous hypertension (idiopathic) with ulcer of bilateral lower extremity; L97.829 Non-pressure chronic ulcer of other part of left lower leg with unspecified severity; L97.819 Non-pressure chronic ulcer of other part of right lower leg with unspecified severity; Z22.39 Carrier of other specified bacterial diseases; R46.0 Very low level of personal hygiene | CPT/HCPCS: A6402 ×3; G0463 ==

== ENCOUNTER 2017-07-31 10:18 | Outpatient (CLI) | payer MEDICARE, OTHER ==
[~2017-07-31 10:18] MED LIST changes: +ASPI-1169 PO; -ASPI81TA2 PO; -LEVO500T15 PO; +LEVO500T2 PO
== END 2017-07-31 23:59 | disposition home health service (06) ==
LOC: WOU 10:18
PROVIDERS: ATTEND Podiatrist Foot & Ankle Surgery
DX: I89.0 Lymphedema, not elsewhere classified (principal); I87.313 Chronic venous hypertension (idiopathic) with ulcer of bilateral lower extremity; L97.829 Non-pressure chronic ulcer of other part of left lower leg with unspecified severity; L97.819 Non-pressure chronic ulcer of other part of right lower leg with unspecified severity; L60.3 Nail dystrophy; R46.0 Very low level of personal hygiene; I10 Essential (primary) hypertension; E05.90 Thyrotoxicosis, unspecified without thyrotoxic crisis or storm
CPT/HCPCS: A6253 ×2; A6402 ×2; G0463

== ENCOUNTER → 2017-09-11 | Outpatient (CLI) | payer MEDICARE, OTHER | END | disposition home health service (06) | LOC: WOU 13:47 | PROVIDERS: ATTEND Podiatrist Foot & Ankle Surgery | DX: I89.0 Lymphedema, not elsewhere classified (principal); I87.313 Chronic venous hypertension (idiopathic) with ulcer of bilateral lower extremity; L97.822 Non-pressure chronic ulcer of other part of left lower leg with fat layer exposed; L97.812 Non-pressure chronic ulcer of other part of right lower leg with fat layer exposed; R46.0 Very low level of personal hygiene; L60.3 Nail dystrophy; G70.9 Myoneural disorder, unspecified; I10 Essential (primary) hypertension | CPT/HCPCS: A6253 ×2; A6402; G0463 ==

== ENCOUNTER 2017-11-20 13:00 | Outpatient (CLI) | payer MEDICARE, OTHER | END 2017-11-20 23:59 | disposition home health service (06) | LOC: WOU 13:00 | PROVIDERS: ATTEND Podiatrist Foot & Ankle Surgery | DX: I89.0 Lymphedema, not elsewhere classified (principal); I87.313 Chronic venous hypertension (idiopathic) with ulcer of bilateral lower extremity; L97.829 Non-pressure chronic ulcer of other part of left lower leg with unspecified severity; L97.919 Non-pressure chronic ulcer of unspecified part of right lower leg with unspecified severity; G70.9 Myoneural disorder, unspecified; Z74.09 Other reduced mobility; L60.3 Nail dystrophy; R46.0 Very low level of personal hygiene | CPT/HCPCS: A6197; A6253; A6402; G0463 ==

== ENCOUNTER 2018-01-12 14:18 | Outpatient (CLI) | payer MEDICARE, OTHER | END 2018-01-12 23:59 | LOC: WOU 14:18 | PROVIDERS: ATTEND Podiatrist Foot & Ankle Surgery | DX: I89.0 Lymphedema, not elsewhere classified (principal); I87.313 Chronic venous hypertension (idiopathic) with ulcer of bilateral lower extremity; L97.829 Non-pressure chronic ulcer of other part of left lower leg with unspecified severity; L97.819 Non-pressure chronic ulcer of other part of right lower leg with unspecified severity; L60.3 Nail dystrophy | CPT/HCPCS: A6197; A6402; G0463 ==

== ENCOUNTER 2018-02-05 12:50 | Outpatient (CLI) | payer MEDICARE, OTHER | END 2018-02-05 23:59 | disposition home health service (06) | LOC: WOU 12:50 | PROVIDERS: ATTEND Podiatrist Foot & Ankle Surgery | DX: I89.0 Lymphedema, not elsewhere classified (principal); I87.313 Chronic venous hypertension (idiopathic) with ulcer of bilateral lower extremity; L97.829 Non-pressure chronic ulcer of other part of left lower leg with unspecified severity; L97.819 Non-pressure chronic ulcer of other part of right lower leg with unspecified severity; L60.3 Nail dystrophy; E05.90 Thyrotoxicosis, unspecified without thyrotoxic crisis or storm; B96.20 Unspecified Escherichia coli [E. coli] as the cause of diseases classified elsewhere; B96.5 Pseudomonas (aeruginosa) (mallei) (pseudomallei) as the cause of diseases classified elsewhere; Z88.0 Allergy status to penicillin | CPT/HCPCS: A6402; G0463; Z7610 ==

== ENCOUNTER 2018-04-16 13:31 | Outpatient (CLI) | payer MEDICARE, OTHER | END 2018-04-16 23:59 | disposition home health service (06) | LOC: WOU 13:31 | PROVIDERS: ATTEND Podiatrist Foot & Ankle Surgery | DX: I89.0 Lymphedema, not elsewhere classified (principal); I87.313 Chronic venous hypertension (idiopathic) with ulcer of bilateral lower extremity; L97.828 Non-pressure chronic ulcer of other part of left lower leg with other specified severity; L97.818 Non-pressure chronic ulcer of other part of right lower leg with other specified severity; L60.3 Nail dystrophy | CPT/HCPCS: 87070; 87075; 87186 ×3; A6402 ×2; G0463; Z7610 ==

== ENCOUNTER 2018-07-16 11:32 | Outpatient (CLI) | payer MEDICARE, OTHER | END 2018-07-16 23:59 | disposition home health service (06) | LOC: WOU 11:32 | PROVIDERS: ATTEND Podiatrist Foot & Ankle Surgery | DX: I89.0 Lymphedema, not elsewhere classified (principal); I87.313 Chronic venous hypertension (idiopathic) with ulcer of bilateral lower extremity; L97.821 Non-pressure chronic ulcer of other part of left lower leg limited to breakdown of skin; L97.811 Non-pressure chronic ulcer of other part of right lower leg limited to breakdown of skin; G70.9 Myoneural disorder, unspecified; E05.90 Thyrotoxicosis, unspecified without thyrotoxic crisis or storm; L60.3 Nail dystrophy; M79.672 Pain in left foot | CPT/HCPCS: A6402; G0463; Z7610 ==

== ENCOUNTER 2018-08-27 12:10 | Outpatient (CLI) | payer MEDICARE, OTHER | END 2018-08-27 23:59 | LOC: WOU 12:10 | PROVIDERS: ATTEND Podiatrist Foot & Ankle Surgery | DX: I89.0 Lymphedema, not elsewhere classified (principal); I87.313 Chronic venous hypertension (idiopathic) with ulcer of bilateral lower extremity; L97.821 Non-pressure chronic ulcer of other part of left lower leg limited to breakdown of skin; L97.811 Non-pressure chronic ulcer of other part of right lower leg limited to breakdown of skin; L60.3 Nail dystrophy; M79.672 Pain in left foot; I87.2 Venous insufficiency (chronic) (peripheral); G70.9 Myoneural disorder, unspecified; E05.90 Thyrotoxicosis, unspecified without thyrotoxic crisis or storm; I10 Essential (primary) hypertension | CPT/HCPCS: A6402 ×2; G0463; Z7610 ==

== ENCOUNTER 2018-10-15 13:45 | Outpatient (CLI) | payer MEDICARE, OTHER | END 2018-10-15 23:59 | LOC: WOU 13:45 | PROVIDERS: ATTEND Podiatrist Foot & Ankle Surgery | DX: I89.0 Lymphedema, not elsewhere classified (principal); I87.313 Chronic venous hypertension (idiopathic) with ulcer of bilateral lower extremity; L97.821 Non-pressure chronic ulcer of other part of left lower leg limited to breakdown of skin; L97.811 Non-pressure chronic ulcer of other part of right lower leg limited to breakdown of skin; L60.3 Nail dystrophy; M79.672 Pain in left foot; G70.9 Myoneural disorder, unspecified; Z88.6 Allergy status to analgesic agent; Z88.0 Allergy status to penicillin | CPT/HCPCS: A6253; A6402; G0463 ==

== ENCOUNTER 2018-11-30 10:40 | Outpatient (CLI) | payer MEDICARE, MEDICAID | END 2018-11-30 23:59 | disposition home health service (06) | LOC: WOU 10:40 | PROVIDERS: ATTEND Podiatrist Foot & Ankle Surgery | DX: I87.313 Chronic venous hypertension (idiopathic) with ulcer of bilateral lower extremity (principal); I89.0 Lymphedema, not elsewhere classified; L97.828 Non-pressure chronic ulcer of other part of left lower leg with other specified severity; L97.818 Non-pressure chronic ulcer of other part of right lower leg with other specified severity; I10 Essential (primary) hypertension; L60.3 Nail dystrophy; Z88.0 Allergy status to penicillin; Z88.8 Allergy status to other drugs, medicaments and biological substances | CPT/HCPCS: A6402; G0463 ==

== ENCOUNTER 2019-02-08 12:45 | Outpatient (CLI) | payer MEDICARE, MEDICAID, OTHER | END 2019-02-08 23:59 | disposition home health service (06) | LOC: WOU 12:45 | PROVIDERS: ATTEND Podiatrist Foot & Ankle Surgery | DX: I89.0 Lymphedema, not elsewhere classified (principal); I87.2 Venous insufficiency (chronic) (peripheral); I87.312 Chronic venous hypertension (idiopathic) with ulcer of left lower extremity; L97.828 Non-pressure chronic ulcer of other part of left lower leg with other specified severity; L97.818 Non-pressure chronic ulcer of other part of right lower leg with other specified severity; I10 Essential (primary) hypertension; L60.3 Nail dystrophy | CPT/HCPCS: A6402; G0463 ==

== ENCOUNTER 2019-07-08 14:10 | Outpatient (CLI) | payer MEDICARE, MEDICAID, OTHER | END 2019-07-08 23:59 | disposition home or self-care (01) | LOC: WOU 14:10 | PROVIDERS: ATTEND Podiatrist Foot & Ankle Surgery | DX: I87.313 Chronic venous hypertension (idiopathic) with ulcer of bilateral lower extremity (principal); L97.828 Non-pressure chronic ulcer of other part of left lower leg with other specified severity; L97.818 Non-pressure chronic ulcer of other part of right lower leg with other specified severity; I89.0 Lymphedema, not elsewhere classified; I73.9 Peripheral vascular disease, unspecified; R26.2 Difficulty in walking, not elsewhere classified; I10 Essential (primary) hypertension | CPT/HCPCS: G0463 ==

== ENCOUNTER 2019-08-16 14:32 | Emergency (ER) | payer MEDICARE, OTHER, MEDICAID ==
[~2019-08-16] VITALS: Ht 165.1 cm; Wt 99.8 kg
--- NOTE | 2019-08-16 14:55 | NUR ---
Fever x 4 days with increased lower extremity swelling. patient a/ox4, breathing even and unlabored, no sob noted, needs attended, kept comfortable. Attached to the registered nurse cardiac telemetry.
--- NOTE | 2019-08-16 15:23 | NUR ---
iv line established and sent blood to lab.
[2019-08-16 15:24] LABS: BASOPHILS # (AUTO) 0.1 /CMM (0.0-0.2); EOSINOPHILS % (AUTO) 0.5 % (0.0-6.0); HEMATOCRIT 31 % (33-45); HEMOGLOBIN 9.9 g/dL (11.5-14.8); LYMPHOCYTES # (AUTO) 0.9 /CMM (0.8-4.8); LYMPHOCYTES % (AUTO) 7.5 % (20.0-44.0); MEAN CORPUSCULAR HGB CONC 32 g/dl (31.0-36.0); MEAN CORPUSCULAR VOLUME 83 fL (82-100); MONOCYTES # (AUTO) 0.8 /CMM (0.1-1.30); NEUTROPHILS # (AUTO) 9.9 /CMM (1.8-8.9); PLATELET COUNT (AUTO) 428 /CMM (150-450); WHITE BLOOD COUNT (AUTO) 11.8 K/uL (4.3-11.0)
[2019-08-16 15:33] LABS: CALCIUM, SERUM 8.8 mg/dL (8.5-10.1); CARBON DIOXIDE 21 mmol/L (21-32); CHLORIDE 107 mmol/L (98-107); CREATININE 1.3 mg/dL (0.6-1.3); GLUCOSE 116 mg/dL (74-106); POTASSIUM 4.3 mmol/L (3.5-5.1); SODIUM SERUM 140 mmol/L (136-145); UREA NITROGEN, BLOOD 23 mg/dL (7-18)
[2019-08-16 15:34] LABS: BILIRUBIN,URINE SMALL (NEGATIVE); BLOOD, URINE Trace-intact Ery/uL (NEGATIVE); COLOR,URINE Yellow (YELLOW); KETONES,URINE Trace (NEGATIVE); LEUKOCYTE ESTERASE ,URINE Negative (NEGATIVE); NITRITE, URINE Negative (NEGATIVE); PROTEIN,URINE 30 mg/dl (NEGATIVE); UGLUCOSE Negative (NEGATIVE); UROBILINOGEN,URINE 0.2 EU/dL (0.2)
[2019-08-16 15:39] LABS: ALANINE AMINOTRANSFERASE 11 U/L (12-78); ALBUMIN 2.5 g/dL (3.4-5.0); ALKALINE PHOSPHATASE 68 U/L (46-116); ASPARTATE AMINOTRANSFERASE 10 U/L (15-37); BILIRUBIN,DIRECT 0.1 mg/dL (0.0-0.2); BILIRUBIN,TOTAL 0.2 mg/dL (0.2-1.0); TOTAL PROTEIN, SERUM 7.4 g/dL (6.4-8.2)
[2019-08-16 15:52] LABS: APPEARANCE,URINE SLIGHTLY CLOUDY (CLEAR)
[2019-08-16 15:55] LABS: BACTERIA,URINE Rare /HPF (None Seen); SQUAMOUS EPITHELIAL CELL,UR Moderate /HPF (None Seen)
--- NOTE | 2019-08-16 17:10 | NUR ---
IV removed. Catheter intact and site benign. Pressure and 4x4 applied to site. No bleeding noted.Patient discharged to home in stable condition. Written and verbal after care instructions given. Patient verbalizes understanding of instruction. Assisted to wheelchair.
[2019-08-16 17:11] VITALS: BP 142/99
== END 2019-08-16 17:12 | disposition home or self-care (01) ==
LOC: ER 14:37
DX: I87.8 Other specified disorders of veins (principal); I10 Essential (primary) hypertension; Z90.710 Acquired absence of both cervix and uterus; Z88.0 Allergy status to penicillin; Z88.2 Allergy status to sulfonamides; Z60.2 Problems related to living alone; Z79.899 Other long term (current) drug therapy; Z79.82 Long term (current) use of aspirin
CPT/HCPCS: 36415; 71045-TC; 80048-TC; 80076-TC; 81000-TC; 83605-TC; 84484-TC; 85025-TC; 85730-TC; 87040-TC; 87086-TC

== ENCOUNTER 2019-08-30 12:40 | Outpatient (CLI) | payer MEDICARE, OTHER | END 2019-08-30 23:59 | disposition home or self-care (01) | LOC: WOU 12:40 | PROVIDERS: ATTEND Podiatrist Foot & Ankle Surgery | DX: I87.313 Chronic venous hypertension (idiopathic) with ulcer of bilateral lower extremity (principal); I89.0 Lymphedema, not elsewhere classified; L97.822 Non-pressure chronic ulcer of other part of left lower leg with fat layer exposed; L97.812 Non-pressure chronic ulcer of other part of right lower leg with fat layer exposed; I73.9 Peripheral vascular disease, unspecified; R26.2 Difficulty in walking, not elsewhere classified; Z91.19 Patient's noncompliance with other medical treatment and regimen | CPT/HCPCS: 87070 ×2; 87077; 87186; G0463 ==

== ENCOUNTER → 2019-08-30 | Outpatient (CLI) | payer MEDICARE, OTHER | END | disposition home or self-care (01) | LOC: MSC 14:10 | PROVIDERS: ATTEND Anesthesiology | DX: G89.4 Chronic pain syndrome (principal); M79.605 Pain in left leg; M79.604 Pain in right leg; M79.2 Neuralgia and neuritis, unspecified; I89.0 Lymphedema, not elsewhere classified; I10 Essential (primary) hypertension; E05.90 Thyrotoxicosis, unspecified without thyrotoxic crisis or storm; G70.9 Myoneural disorder, unspecified; M81.0 Age-related osteoporosis without current pathological fracture; Z90.710 Acquired absence of both cervix and uterus ==

== ENCOUNTER 2019-09-07 09:59 | Outpatient (CLI) | payer MEDICARE, MEDICAID | END 2019-09-07 23:59 | disposition home or self-care (01) | LOC: CARD 09:59 | PROVIDERS: ATTEND Podiatrist Foot & Ankle Surgery | DX: T14.8XXA Other injury of unspecified body region, initial encounter (principal); I89.0 Lymphedema, not elsewhere classified; X58.XXXA Exposure to other specified factors, initial encounter; Y93.89 Activity, other specified; Y92.89 Other specified places as the place of occurrence of the external cause; Y99.8 Other external cause status | CPT/HCPCS: 93970-TC ==

== ENCOUNTER 2019-11-15 10:35 | Outpatient (CLI) | payer MEDICARE, MEDICAID | END 2019-11-15 23:59 | disposition home or self-care (01) | LOC: WOU 10:35 | PROVIDERS: ATTEND Podiatrist Foot & Ankle Surgery | DX: I87.311 Chronic venous hypertension (idiopathic) with ulcer of right lower extremity (principal); L97.812 Non-pressure chronic ulcer of other part of right lower leg with fat layer exposed; I89.0 Lymphedema, not elsewhere classified; I73.9 Peripheral vascular disease, unspecified; R26.2 Difficulty in walking, not elsewhere classified; I10 Essential (primary) hypertension; Z79.899 Other long term (current) drug therapy | CPT/HCPCS: 11042; 11045 ==

== ENCOUNTER 2019-11-29 11:00 | Outpatient (CLI) | payer MEDICARE, MEDICAID ==
[2019-11-29 12:22] LABS: BASOPHILS # (AUTO) 0.1 /CMM (0.0-0.2); BASOPHILS % (AUTO) 1.4 % (0.0-2.0); EOSINOPHILS % (AUTO) 1.4 % (0.0-6.0); HEMATOCRIT 30 % (33-45); HEMOGLOBIN 9.8 g/dL (11.5-14.8); LYMPHOCYTES # (AUTO) 0.8 /CMM (0.8-4.8); LYMPHOCYTES % (AUTO) 8.2 % (20.0-44.0); MEAN CORPUSCULAR HGB CONC 32 g/dl (31.0-36.0); MEAN CORPUSCULAR VOLUME 82 fL (82-100); MONOCYTES # (AUTO) 0.6 /CMM (0.1-1.30); MONOCYTES % (AUTO) 5.7 % (2.0-12.0); NEUTROPHILS # (AUTO) 8.6 /CMM (1.8-8.9); NEUTROPHILS % (AUTO) 83.3 % (43.0-81.0); PLATELET COUNT (AUTO) 389 /CMM (150-450); RED BLOOD CELL COUNT(AUTO) 3.69 MIL/uL (4.0-5.2); WHITE BLOOD COUNT (AUTO) 10.3 K/uL (4.3-11.0)
[2019-11-29 13:19] LABS: ALBUMIN 2.6 g/dL (3.4-5.0); BILIRUBIN,TOTAL 0.3 mg/dL (0.2-1.0); CALCIUM, SERUM 8.2 mg/dL (8.5-10.1); POTASSIUM 4.1 mmol/L (3.5-5.1); TOTAL PROTEIN, SERUM 7.2 g/dL (6.4-8.2)
[2019-11-29 13:32] LABS: PREALBUMIN 15.3 MG/DL (18.0-35.7)
== END 2019-11-29 23:59 | disposition home or self-care (01) ==
LOC: WOU 11:00
PROVIDERS: ATTEND Podiatrist Foot & Ankle Surgery
DX: I87.311 Chronic venous hypertension (idiopathic) with ulcer of right lower extremity (principal); L97.812 Non-pressure chronic ulcer of other part of right lower leg with fat layer exposed; I89.0 Lymphedema, not elsewhere classified; I73.9 Peripheral vascular disease, unspecified; Z79.899 Other long term (current) drug therapy
CPT/HCPCS: 11042; 11045; 36415; 80053-TC; 84134-TC; 85025-TC

== ENCOUNTER 2019-12-21 14:14 | Inpatient (IN) | payer MEDICARE, OTHER ==
[~2019-12-21] VITALS: Ht 167.6 cm; Wt 87.1 kg
[2019-12-21] MEDS ORDERED: ASPIRIN 81 MG TAB.CHEW PO ONE (15:00)
[2019-12-21] MEDS ORDERED: IV NS 0.9% 500 ML BAG IV ONE (15:00)
[2019-12-21 15:10] LABS: BASOPHILS # (AUTO) 0.1 /CMM (0.0-0.2); BASOPHILS % (AUTO) 0.5 % (0.0-2.0); EOSINOPHILS % (AUTO) 1.1 % (0.0-6.0); HEMATOCRIT 31 % (33-45); HEMOGLOBIN 9.9 g/dL (11.5-14.8); LYMPHOCYTES # (AUTO) 1.1 /CMM (0.8-4.8); LYMPHOCYTES % (AUTO) 7.6 % (20.0-44.0); MEAN CORPUSCULAR HGB CONC 32 g/dl (31.0-36.0); MEAN CORPUSCULAR VOLUME 83 fL (82-100); MONOCYTES # (AUTO) 0.7 /CMM (0.1-1.30); MONOCYTES % (AUTO) 4.7 % (2.0-12.0); NEUTROPHILS # (AUTO) 12.1 /CMM (1.8-8.9); NEUTROPHILS % (AUTO) 86.1 % (43.0-81.0); PLATELET COUNT (AUTO) 406 /CMM (150-450); RED BLOOD CELL COUNT(AUTO) 3.76 MIL/uL (4.0-5.2); WHITE BLOOD COUNT (AUTO) 14.1 K/uL (4.3-11.0)
[2019-12-21 15:12] LABS: CALCIUM, SERUM 8.8 mg/dL (8.5-10.1); CARBON DIOXIDE 24 mmol/L (21-32); CHLORIDE 106 mmol/L (98-107); CREATININE 1.1 mg/dL (0.6-1.3); GLUCOSE 108 mg/dL (74-106); POTASSIUM 4.2 mmol/L (3.5-5.1); SODIUM SERUM 139 mmol/L (136-145); UREA NITROGEN, BLOOD 13 mg/dL (7-18)
--- NOTE | 2019-12-21 15:13 | NUR ---
BIBS FROM HOME TO ER BED 6. AAOX4. NOT IN RESP DISTRESS, BREATHING EVEN AND UNLABORED. AMBULATORY ON STEADY GAIT WITH THE AIDE OF A FRONT WHEELED WALKER. CAME IN FOR MID STERNAL CHEST PAIN DESCRIBED HEAVINESS AGGREVATED BY COUGH AND LIFTING. STARTED ON FRIDAY. PT ALSO CAME IN FOR C/O POSSIBLY INFECTED WOUND ON R FOOT WHICH HAS BEEN GOING ON FOR THE PAST 3 MONTHS. NOTED ENLARGEMENT ON BILAT LOWER LEG. MD WAS AT BEDSIDE FOR EVAL. ORDERS RECEIVED NOTED AND CARRIED OUT. IV LINE OBTAINED ON R WRIST 20G. BLOOD DRAWN AND GIVEN TO MATH TUTOR, EKG DONE AND XRAY DONE. PT ON MONITOR.
[2019-12-21 15:18] LABS: ALANINE AMINOTRANSFERASE 10 U/L (12-78); ALBUMIN 2.9 g/dL (3.4-5.0); ALKALINE PHOSPHATASE 64 U/L (46-116); ASPARTATE AMINOTRANSFERASE 9 U/L (15-37); BILIRUBIN,DIRECT 0.1 mg/dL (0.0-0.2); BILIRUBIN,TOTAL 0.3 mg/dL (0.2-1.0)
[2019-12-21] MEDS ORDERED: ASPIRIN 81 MG TAB.CHEW ONE (15:19)
[2019-12-21 17:45] LABS: APPEARANCE,URINE Clear (CLEAR); BILIRUBIN,URINE Negative (NEGATIVE); BLOOD, URINE Trace-intact Ery/uL (NEGATIVE); COLOR,URINE Yellow (YELLOW); KETONES,URINE Negative (NEGATIVE); LEUKOCYTE ESTERASE ,URINE Negative (NEGATIVE); NITRITE, URINE Negative (NEGATIVE); PH,URINE 6.5 (5.0-8.0); PROTEIN,URINE Negative (NEGATIVE); UGLUCOSE Negative (NEGATIVE)
[2019-12-21 17:49] LABS: BACTERIA,URINE None seen /HPF (None Seen); SQUAMOUS EPITHELIAL CELL,UR Few /HPF (None Seen); WBC,URINE 0-2 /HPF (0-3)
--- NOTE | 2019-12-21 18:23 | NUR ---
REPORT GIVEN TO GRACIELA RESENDEZ FOR LISA
--- NOTE | 2019-12-21 18:40 | NUR ---
pt transported to unit on [facility] and rn at bedside w/ acls protocol. nad note during transport
[2019-12-21 19:30] VITALS: BP 127/70
[2019-12-21] MEDS ORDERED: Z GUARD REMEDY 2 OZ OINT TP PRN (19:30)
[2019-12-21] MEDS ORDERED: ACETAMINOPHEN 325 MG TABLET PO PRN (19:30)
[2019-12-21] MEDS ORDERED: ONDANSETRON HCL/PF 4 MG/2 ML VIAL IVP PRN (19:30)
--- NOTE | 2019-12-21 19:30 | NUR ---
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 PATIENT ABLE TO COOPERATE , SELF MOTIVATED, DENIES CHEST PAIN BUT REPORTED PAIN IN BLE DUE TO WOUND INFECTION AND LYMPHADEMA REPORTED CURRENTLY DX WITH CHEST PAIN. WOUND ASSESSMENT AND PHOTO TAKEB FOR WOUND CONSULT. PATIENT REQUESTED TO HAVE SNACKS TO EAT HEAD TO TOE ASSESSMENT, ROOM ORIENTATION PROVIDED, TV REPAIR REQUESTED, BED LOCKED, CALL LIGHTS WITHIN REACH, DISCUSSED PLAN OF CARE, REPORTED NOT ALLERGIC TO PCN BUT ONLY SULFA. HAS A CAREGIVER AND FAMILY INVOLVE. MD VELIZ ADMITTING DOCTOR. MED ORDERS.TO CONTINUE WITH CARE. ,
[2019-12-21 20:00] VITALS: BP 127/70
[2019-12-21] MEDS ORDERED: FEE PK DOSING 1 MIN EA MC ONE (20:22)
[2019-12-21] MEDS: VANCOMYCIN 1.25 GM in IV D5W 250 ML IV SCH (21:51)
[2019-12-21] MEDS: GENTAMICIN 0.1% OINT 15 GM TUBE TP SCH (21:52)
[2019-12-21] MEDS: ENOXAPARIN SODIUM 40 MG/0.4 ML DISP.SYRIN SQ SCH (21:53)
[2019-12-21] MEDS ORDERED: ZOLPIDEM TARTRATE 5 MG TABLET PO PRN (22:00)
[2019-12-22] VITALS: BP 121/61
[2019-12-22 04:00] VITALS: BP 119/71
[2019-12-22 04:22] LABS: BASOPHILS # (AUTO) 0.2 /CMM (0.0-0.2); BASOPHILS % (AUTO) 1.7 % (0.0-2.0); HEMATOCRIT 29 % (33-45); HEMOGLOBIN 9.3 g/dL (11.5-14.8); LYMPHOCYTES # (AUTO) 1.4 /CMM (0.8-4.8); LYMPHOCYTES % (AUTO) 13.5 % (20.0-44.0); MEAN CORPUSCULAR HGB CONC 33 g/dl (31.0-36.0); MEAN CORPUSCULAR VOLUME 82 fL (82-100); MONOCYTES # (AUTO) 0.8 /CMM (0.1-1.30); MONOCYTES % (AUTO) 7.3 % (2.0-12.0); NEUTROPHILS # (AUTO) 7.9 /CMM (1.8-8.9); NEUTROPHILS % (AUTO) 75.5 % (43.0-81.0); PLATELET COUNT (AUTO) 385 /CMM (150-450); RED BLOOD CELL COUNT(AUTO) 3.47 MIL/uL (4.0-5.2); WHITE BLOOD COUNT (AUTO) 10.5 K/uL (4.3-11.0)
[2019-12-22 04:37] LABS: ALBUMIN 2.3 g/dL (3.4-5.0); BILIRUBIN,TOTAL 0.2 mg/dL (0.2-1.0); CALCIUM, SERUM 8.1 mg/dL (8.5-10.1); CREATININE 0.9 mg/dL (0.6-1.3); MAGNESIUM 1.9 mg/dL (1.8-2.4); PHOSPHORUS 2.5 mg/dL (2.5-4.9); POTASSIUM 3.8 mmol/L (3.5-5.1); TOTAL PROTEIN, SERUM 6.8 g/dL (6.4-8.2)
[2019-12-22 04:46] LABS: THYROID STIMULATING HORMONE 2.403 uIU/mL (0.358-3.74)
--- NOTE | 2019-12-22 06:35 | NUR ---
307-1 TELE/RN NOTES PATIENT ABLE TO SLEEP DURING THE NIGHT, ATTENDED TO ALL NEEDS, IV ANTIBIOTIC INFUSED AND MONITORED FOR ANY CHANGES. WOUND AND INFECTION ON BILATERAL FEET DRESSING CHANGE, IV SITE ON LEFT WRIST PATENT, WILL ENDORSE TO AM RN FOR LISA.
--- NOTE | 2019-12-22 06:39 | NUR ---
TELE/RN NOTES DR. SEXTON AT BEDSIDE
--- NOTE | 2019-12-22 07:30 | NUR ---
WOUND CARE CONSULT: PT REFUSED SKIN ASSESSMENT. PER NURSING STAFF, PT IS CONTINENT AND HAS CARLOS SCORE OF 18. WILL SEE PRN. DR CARABALLO FOLLOWING PT FOR LOWER EXTREMITIES. WILL SEE PRN.
[2019-12-22 08:00] VITALS: BP 111/61
[2019-12-22] MEDS: GENTAMICIN 0.1% OINT 15 GM TUBE TP SCH ×2 (11:19→18:35)
--- NOTE | 2019-12-22 14:00 | NUR ---
KENDRA CARABALLO HERE AND LEG DRESSINGS DONE.
--- NOTE | 2019-12-22 15:10 | NUR ---
pt. going for ct angio of heart so larger angio placed #20 lt. ac,then pt. c/o angio hurting so midline inserted lt upper arm and other ivs removed.
[2019-12-22] MEDS ORDERED: IOHEXOL-350 100 ML VIAL IV ONE (16:48)
[2019-12-22] MEDS ORDERED: CT SWABBABLE VALVE TRANS SET 1 EA INFUS.SET MC ONE (16:48)
[2019-12-22] MEDS ORDERED: IV NS 0.9% 250 ML IV ONE (16:48)
[2019-12-22] MEDS ORDERED: NITROGLYCERIN 0.4 MG/TAB BOTTLE SL PRN (17:00)
[2019-12-22] MEDS ORDERED: METOPROLOL TARTRATE INJ 5 MG/5 ML AMPUL ONE ×3 (17:08→17:35)
[2019-12-22] MEDS: METOPROLOL TARTRATE INJ 5 MG/5 ML AMPUL IVP PRN ×7 (17:10→17:40)
[2019-12-22 18:30] VITALS: BP 132/77
[2019-12-22] MEDS: VANCOMYCIN 1.25 GM in IV D5W 250 ML IV SCH (18:35)
[2019-12-22 20:00] VITALS: BP 140/71
--- NOTE | 2019-12-22 20:00 | NUR ---
RN NOTES RECEIVED PT. AWAKE ON BED, A/OX3, NOT IN DISTRESS, DENIES PAIN, CALL LIGHT WITHIN REACH, [id number], CONTINUE TO MONITOR
--- NOTE | 2019-12-22 20:25 | NUR ---
RETURNED TO FROM CT ANGIO.TOLERATED WELL. Addendum: 12/22/19 at 2027 by ELYSSA CHEN RN ABOVE TIME INCORRECT,ACTUAL TIME OF RETURN WAS 1829.
[2019-12-22] MEDS: ENOXAPARIN SODIUM 40 MG/0.4 ML DISP.SYRIN SQ SCH (21:30)
[2019-12-23] VITALS (15 sets, daily range): BP systolic 102–162; BP diastolic 53–96
[2019-12-23 06:32] LABS: CALCIUM, SERUM 7.7 mg/dL (8.5-10.1); CREATININE 0.9 mg/dL (0.6-1.3); POTASSIUM 3.8 mmol/L (3.5-5.1)
--- NOTE | 2019-12-23 07:00 | NUR ---
RN NOTES DR. SEXTON SPOKE TOT HE PATIENT REGARDING CARDIAC CATH AND PT. AGREED TO DO THE PROCEDURE TODAY, DENIES PAIN, NO SOB, MORNING CARE RENDERED, PT. NEEDS ATTENDED
[2019-12-23] MEDS ORDERED: IV NS 0.9% 1,000 ML IV PRN (08:15)
[2019-12-23] MEDS: ASPIRIN 81 MG TAB.CHEW PO SCH (09:00)
[2019-12-23] MEDS: ATORVASTATIN 10 MG TABLET PO SCH (09:00)
[2019-12-23] MEDS: GENTAMICIN 0.1% OINT 15 GM TUBE TP SCH ×2 (09:00→17:00)
[2019-12-23] MEDS ORDERED: HEPARIN SODIUM, PORCINE 1,000 UNIT/ML VIAL ONE (09:43)
[2019-12-23] MEDS ORDERED: VERAPAMIL HCL IV 5 MG/2 ML VIAL ONE (09:43)
[2019-12-23] MEDS ORDERED: IV SET PRIMARY PUMP SET 1 EA INFUS.SET MC ONE (09:43)
[2019-12-23] MEDS ORDERED: SECONDARY IV SET 1 EA INFUS.SET MC ONE (09:43)
[2019-12-23] MEDS ORDERED: NITROGLYCERIN ICAR 1,000 MCG/10 ML VIAL ICAR ONE (09:44)
[2019-12-23] MEDS ORDERED: IV NS 0.9% 50 ML IV ONE (09:45)
[2019-12-23] MEDS ORDERED: IODIXANOL 150 ML IV ONE (09:46)
[2019-12-23] MEDS: VANCOMYCIN 1.25 GM in IV D5W 250 ML IV SCH (10:01)
[2019-12-23] MEDS ORDERED: IV NS 0.9% 0 ML ONE (12:32)
[2019-12-23] MEDS ORDERED: FENTANYL PF 100MCG/2ML AMPUL ONE (12:44)
[2019-12-23] MEDS ORDERED: MIDAZOLAM HCL 2 MG/2ML VIAL ONE (12:44)
[2019-12-23] MEDS ORDERED: LIDOCAINE HCL/PF 1% 30 ML SDV ONE (12:45)
--- NOTE | 2019-12-23 14:15 | NUR ---
RN NOTES RECEIVED PT FROM COPY EDITOR, PT IS A/OX4, ON RA, NO SOB AND DISTRESS NOTED, ON TELE SR HR IN 80'S , R GROIN FEMORAL CATHETER INSERTION SITE DRESSING CLEAN, DRY AND INTACT, SOFT TO TOUCH, NO COMPLICATION NOTED AT THE INSERTION SITE, HOB ELEVATED 10 DEGREES, ADVISED PT TO KEEP R LEG STRAIGHT AND STAY IN BED, PT VERBALIZES UNDERSTANDING , POSITIVE POPITEAL PULSES PRESENT BILATERALLY , BOTH LEGS ARE WARM TO TOUCH, UNABLE TO GET PT AND DP PULSES DUE TO PT CHRONIC DIAZ. LOWER EXTRIMITES CELLULITIS CONDITION , PT IS ABLE TO MOVE TOES BILATERALLY , INGRID ANY NUMBNESS AND TINGLING , GOOD CAPILLARY REFILLS NOTED ON DIAZ LOWER EXTREMISTS . SR UP X3, CALL LIGHT WITHIN EASY REACH, BED LOCKED AND IN LOWEST POSITION, CALL LIGHT WITHIN EASY REACH, CONTINUE TO MONITOR .
[2019-12-23] MEDS ORDERED: IV NS 0.9% 1,000 ML IV SCH ×2 (15:00)
--- NOTE | 2019-12-23 16:15 | NUR ---
RN/ICU- RECEIVED REPORT FROM GRACIELA SOLANO. PT. IS AWAKE ALERT, EXPRESSIVE OF NEEDS. BREATHING COMES EASY TO ROOM AIR. SR. NO ECTOPY.RIGHT FEMORAL SITE INTACT W/CLOSED, COVERED W/ GAUZE AND TEGADERM. SITE IS WARM. NO BLEEDING, HEMATOMA OR SWELLING NOTED. W/ PALPABLE PULSES NOTED ON POPLITEAL
--- NOTE | 2019-12-23 16:27 | NUR ---
RN NOTES R GROIN SITE CLEAN, DRY AND INTACT, VSS STABLE ,REPORT GIVEN TO AYDIN OWENS FOR CONTINUITY OF CARE.
--- NOTE | 2019-12-23 16:30 | NUR ---
RN/ICU- CALLED RN MONICA IN [place] REGARDING GENT. OINTMENT FOR PT. DUE AT 1700. SAME RN WILL ADMINISTER PT. IN WHEN PT. ARRIVES THE FLOOR AT 1800.
--- NOTE | 2019-12-23 17:00 | NUR ---
RN/ICU- ON REGULAR DIET. CANDIS BARROW AT 60 DEGREES. Addendum: 12/23/19 at 1734 by DENISSE PAULINO RN RN/ICU- ON CARDIAC DIET
--- NOTE | 2019-12-23 17:34 | NUR ---
RN/ICU- REPORT GIVEN TO GRACIELA ANDERSON.
--- NOTE | 2019-12-23 18:00 | NUR ---
RN/ICU- ATE 100% DIET SERVED, ISAIAH WELL. RIGHT GROIN REMAINS NO BLEEDING. SWELLING OR HEMATOMA. TRANSFERRED TO [facility] BY BED PER ACLS PROTOCOL.
--- NOTE | 2019-12-23 18:25 | NUR ---
MS/TELE NOTES REC PT. VSS. DENIES PAIN. O2 SAT WNL. RIGHT FEMORAL ANGIO ACCESS SITE NEGATIVE FOR BLEEDING. NO HEMATOMA FOUND. RIGHT POPLITEAL AND PEDAL PULSE STRONG AND EVEN. Q1H VS TBD UNTIL 1999, IV FLUIDS TO BE DC AT 1999. PT EDUCATION PERFORMED (IMMOBILIZE RLE, MONITOR FOR HEMATOMA/BLEED, ETC.) , PT VERBALIZES UNDERSTANDING.
--- NOTE | 2019-12-23 19:30 | NUR ---
RN NOTES RECEIVED PT. AWAKE ON BED, A/OX4, S/P CARDIAC CATH, CHECKED PATIENT RIGHT GROIN DRY- DRESSING DRY AND INTACT, SR ON TELE MONITOR HR-[id number], DENIES PAIN, NO SOB ,CALL LIGHT WITHIN REACH, SIDERAILSUPX2, CONTINUE TO MONITOR
[2019-12-23] MEDS: ENOXAPARIN SODIUM 40 MG/0.4 ML DISP.SYRIN SQ SCH (21:18)
[2019-12-24] VITALS: BP 109/66
[2019-12-24 04:00] VITALS: BP 120/75
--- NOTE | 2019-12-24 06:21 | NUR ---
RN NOTES CHECKED, RIGHT FEMORAL ANGIO SITE, NO BLEEDING , NO HEMATOME, POPLITEAL AND PULSE ARE STRONG, DRESSING DRY AND INTACT
--- NOTE | 2019-12-24 06:22 | NUR ---
RN NOTES AWAKE, DENIES PAIN, NO SOB, RIGHT FEMORAL ANGIO SITE NO BLEEDING, NO HEMATOMA, POPLITEAL AND PULSE ARE STRONG, CALL LIGHT WITHIN REACH, SIDERAILSUPX2, MORNING CARE RENDERED, PT. NEEDS ATTENDED
[2019-12-24 07:09] LABS: CALCIUM, SERUM 8.1 mg/dL (8.5-10.1); POTASSIUM 4.1 mmol/L (3.5-5.1)
[2019-12-24 08:00] VITALS: BP 118/68
--- NOTE | 2019-12-24 08:00 | NUR ---
RN NOTES RECEIVED PT. AWAKE ON BED, A/OX4, S/P CARDIAC CATH, CHECKED PATIENT RIGHT GROIN DRY- DRESSING DRY AND INTACT, SR ON TELE MONITOR HR-[id number] DENIES PAIN, NO SOB ,CALL LIGHT WITHIN REACH, SIDERAILSUPX2, CONTINUE TO MONITOR
[2019-12-24] MEDS: ATORVASTATIN 10 MG TABLET PO SCH (08:29)
[2019-12-24] MEDS: ASPIRIN 81 MG TAB.CHEW PO SCH (08:29)
[2019-12-24] MEDS ORDERED: VANCOMYCIN 1.25 GM in IV D5W 250 ML IV SCH (09:00)
[2019-12-24] MEDS: GENTAMICIN 0.1% OINT 15 GM TUBE TP SCH (09:16)
--- NOTE | 2019-12-24 14:15 | NUR ---
DISCHARGED PT HOME WITH STABLE V/S.REFUSED TO HAVE SKIN PHOTOS TAKEN BECAUSE SHE WAS IN A [place] AND EAGER TO GO HOME.WOUND DRESSING CHANGE DONE TO BLE.IV H/L TO RT WRIST AND VIANCA MIDLINE REMOVED WITHOUT BLEEDING OR SWELLING NOTED ON THE SITE. DISCHARGE INSTRUCTIONS AND FOLLOW UP INSTRUCTIONS GIVEN.PT CALLED FOR ACCESS SERVICE FOR HER TRANSPORTATION.
== END 2019-12-24 14:15 | disposition home or self-care (01) | DRG 287 ==
LOC: ER 14:32 → TELE 18:07 → MED 12-22 11:32 → ICU 12-23 14:28 → MED 12-23 19:27 → TELE 12-23 20:01 → MED 12-24 11:53
PROVIDERS: ADMIT Nurse Practitioner Acute Care; ATTEND Nurse Practitioner Acute Care
PROC: 4A023N7 Measurement of Cardiac Sampling and Pressure, Left Heart, Percutaneous Approach (ICD-10-PCS; principal; 2019-12-23)
PROC: B211YZZ Fluoroscopy of Multiple Coronary Arteries using Other Contrast (ICD-10-PCS; 2019-12-23)
PROC: B41FYZZ Fluoroscopy of Right Lower Extremity Arteries using Other Contrast (ICD-10-PCS; 2019-12-23)
PROC: 05HA33Z Insertion of Infusion Device into Left Brachial Vein, Percutaneous Approach (ICD-10-PCS; 2019-12-23)
PROC: B215YZZ Fluoroscopy of Left Heart using Other Contrast (ICD-10-PCS; 2019-12-23)
DX: I25.10 Atherosclerotic heart disease of native coronary artery without angina pectoris (principal); L03.115 Cellulitis of right lower limb; L03.116 Cellulitis of left lower limb; I87.313 Chronic venous hypertension (idiopathic) with ulcer of bilateral lower extremity; L97.829 Non-pressure chronic ulcer of other part of left lower leg with unspecified severity; L97.919 Non-pressure chronic ulcer of unspecified part of right lower leg with unspecified severity; D63.8 Anemia in other chronic diseases classified elsewhere; G70.9 Myoneural disorder, unspecified; I10 Essential (primary) hypertension; I89.0 Lymphedema, not elsewhere classified; D36.9 Benign neoplasm, unspecified site; I77.6 Arteritis, unspecified; Z88.0 Allergy status to penicillin; Z88.2 Allergy status to sulfonamides; I73.89 Other specified peripheral vascular diseases
CPT/HCPCS: 36410; 36415; 71045-TC; 75574; 80048-TC; 80053-TC; 80061-TC; 80076-TC; 80202-TC; 81000-TC; 82728-TC; 83540-TC; 83735-TC; 84100-TC; 84443-TC; 84484-TC; 85025-TC; 85730-TC; 87081-TC; 93307-TC; A4216; A6253; A6403; C1887; C1894; G0378; G0500; J1644; J1650; J2250; J3010; J3370; J3490; J7030; J7040; J7050; J7060; Q9967

== ENCOUNTER 2020-03-09 12:30 | Outpatient (CLI) | payer MEDICARE, OTHER ==
[2020-03-09 14:31] LABS: BASOPHILS # (AUTO) 0.1 /CMM (0.0-0.2); BASOPHILS % (AUTO) 1.4 % (0.0-2.0); EOSINOPHILS % (AUTO) 0.9 % (0.0-6.0); HEMATOCRIT 30 % (33-45); HEMOGLOBIN 9.6 g/dL (11.5-14.8); LYMPHOCYTES # (AUTO) 1.3 /CMM (0.8-4.8); LYMPHOCYTES % (AUTO) 13.7 % (20.0-44.0); MEAN CORPUSCULAR HGB CONC 33 g/dl (31.0-36.0); MEAN CORPUSCULAR VOLUME 81 fL (82-100); MONOCYTES # (AUTO) 0.8 /CMM (0.1-1.30); MONOCYTES % (AUTO) 7.9 % (2.0-12.0); NEUTROPHILS # (AUTO) 7.2 /CMM (1.8-8.9); NEUTROPHILS % (AUTO) 76.1 % (43.0-81.0); PLATELET COUNT (AUTO) 420 /CMM (150-450); RED BLOOD CELL COUNT(AUTO) 3.63 MIL/uL (4.0-5.2); WHITE BLOOD COUNT (AUTO) 9.5 K/uL (4.3-11.0)
[2020-03-09 14:36] LABS: PREALBUMIN 16.2 MG/DL (18.0-35.7)
[2020-03-09 14:38] LABS: ALBUMIN 2.4 g/dL (3.4-5.0); BILIRUBIN,TOTAL 0.3 mg/dL (0.2-1.0); CALCIUM, SERUM 8.7 mg/dL (8.5-10.1); CREATININE 0.9 mg/dL (0.6-1.3); POTASSIUM 4.3 mmol/L (3.5-5.1); TOTAL PROTEIN, SERUM 7.8 g/dL (6.4-8.2)
== END 2020-03-09 23:59 | disposition home or self-care (01) ==
LOC: WOU 12:30
PROVIDERS: ATTEND Podiatrist Foot & Ankle Surgery
DX: I87.311 Chronic venous hypertension (idiopathic) with ulcer of right lower extremity (principal); I89.0 Lymphedema, not elsewhere classified; L97.822 Non-pressure chronic ulcer of other part of left lower leg with fat layer exposed; L97.812 Non-pressure chronic ulcer of other part of right lower leg with fat layer exposed; I73.9 Peripheral vascular disease, unspecified; R26.2 Difficulty in walking, not elsewhere classified; Z79.899 Other long term (current) drug therapy; I10 Essential (primary) hypertension
CPT/HCPCS: 11042; 11045; 36415; 80053-TC; 84134-TC; 85025-TC; 87070-TC; 87075-TC

== ENCOUNTER 2020-05-05 14:41 | Emergency (ER) | payer MEDICARE, OTHER ==
[~2020-05-05] VITALS: Ht 165.1 cm; Wt 72.6 kg
--- NOTE | 2020-05-05 16:59 | NUR ---
ATTEMPTED TO CALL DR RASHMI GARDNER AT [phone], UNABLE TO LEAVE A MESSAGE, NAME NOT IN DIRECTORY/CHOICES
--- NOTE | 2020-05-05 19:48 | NUR ---
lab called regarding negative covid result.
[2020-05-05] MEDS ORDERED: LIDOCAINE /MPF 1% VIAL 5 ML VIAL ONE (20:55)
[2020-05-05] MEDS ORDERED: CEFTRIAXONE 1 G VIAL ONE (20:55)
[2020-05-05] MEDS: CEFTRIAXONE 500 MG VIAL IM ONE (21:01)
--- NOTE | 2020-05-05 21:25 | NUR ---
WOUND CLEANSED W/ NS PAT DRY, WRAPPED WITH KERLIX.
--- NOTE | 2020-05-05 21:41 | NUR ---
Patient discharged to home in stable condition. Written and verbal after care instructions given. Patient verbalizes understanding of instruction. Pt ambulatory with a steady gait w/ an aide of a front wheeled walker.
[2020-05-05 21:42] VITALS: BP 142/95
== END 2020-05-05 21:42 | disposition home or self-care (01) ==
LOC: ER 14:47
DX: I89.0 Lymphedema, not elsewhere classified (principal); Z88.2 Allergy status to sulfonamides; I10 Essential (primary) hypertension; L91.0 Hypertrophic scar; L90.5 Scar conditions and fibrosis of skin; G70.9 Myoneural disorder, unspecified; Z20.828 Contact with and (suspected) exposure to other viral communicable diseases
CPT/HCPCS: 87426; 96372; 99283; J0696; J3490; C9803-CS

== ENCOUNTER 2020-06-02 14:54 | Inpatient (IN) | payer MEDICARE, OTHER ==
[~2020-06-02] VITALS: Ht 165.1 cm; Wt 91.6 kg
--- NOTE | 2020-06-02 15:00 | NUR ---
PT BIB SELF C/O BLE CELLULITIS. PT HAS CHRONIC ELEPHATHIASIS OF BLE. VS CHECKED. AWAITING MD EDWARDS. ,
[2020-06-02 16:04] LABS: CALCIUM, SERUM 9.1 mg/dL (8.5-10.1); CREATININE 1.1 mg/dL (0.6-1.3); POTASSIUM 4.5 mmol/L (3.5-5.1)
[2020-06-02 16:11] LABS: EOSINOPHILS % (AUTO) 1.3 % (0.0-6.0); HEMOGLOBIN 10.4 g/dL (11.5-14.8); LYMPHOCYTES # (AUTO) 1.1 /CMM (0.8-4.8); MONOCYTES # (AUTO) 0.6 /CMM (0.1-1.30); WHITE BLOOD COUNT (AUTO) 8.9 K/uL (4.3-11.0)
--- NOTE | 2020-06-02 16:12 | NUR ---
MOVE SHEET SUBMITTED AND CALLED FOR MS BED.
[2020-06-02 16:14] LABS: BASOPHILS # (AUTO) 0.1 /CMM (0.0-0.2); BASOPHILS % (AUTO) 0.9 % (0.0-2.0); HEMATOCRIT 35 % (33-45); LYMPHOCYTES % (AUTO) 12.8 % (20.0-44.0); MEAN CORPUSCULAR HGB CONC 30 g/dl (31.0-36.0); MEAN CORPUSCULAR VOLUME 88 fL (82-100); MONOCYTES % (AUTO) 6.8 % (2.0-12.0); NEUTROPHILS % (AUTO) 78.2 % (43.0-81.0); PLATELET COUNT (AUTO) 333 /CMM (150-450); RED BLOOD CELL COUNT(AUTO) 3.94 MIL/uL (4.0-5.2)
[2020-06-02] MEDS ORDERED: PIPERACILLIN /TAZOBACTAM 2.25 G VIAL IV ONE (16:30)
[2020-06-02] MEDS ORDERED: VANCOMYCIN 500 MG VIAL IV ONE (16:30)
--- NOTE | 2020-06-02 16:32 | NUR ---
IV ACCESS STARTED ON L AC G20. INTACT AND PATENT AND FLUSHING WELL.
--- NOTE | 2020-06-02 16:32 | NUR ---
CALLED PHARMACY FOR MARIEL. PER PHARMACY THEY WILL DELIVER
[2020-06-02] MEDS ORDERED: VANCOMYCIN 1 GM in IV D5W 250ml IV ONE (16:33)
[2020-06-02] MEDS ORDERED: ZOSYN IVPB 3.375 G in IV D5W 50ml IV ONE (16:34)
--- NOTE | 2020-06-02 16:46 | NUR ---
GOT BED 207
--- NOTE | 2020-06-02 16:56 | NUR ---
COVID SWAB DONE SENT TO LAB
[2020-06-02] MEDS ORDERED: ACETAMINOPHEN 325 MG TABLET PO PRN (17:00)
[2020-06-02] MEDS ORDERED: TEMAZEPAM 15 MG CAPSULE PO PRN (17:00)
[2020-06-02] MEDS ORDERED: HYDROCODONE/APAP 10/325MG TABLET PO PRN (17:00)
[2020-06-02] MEDS ORDERED: Z GUARD REMEDY 2 OZ OINT TP PRN (17:00)
[2020-06-02] MEDS ORDERED: HYDROCODONE/APAP 5/325MG TABLET PO PRN (17:00)
[2020-06-02] MEDS ORDERED: ONDANSETRON HCL/PF 4 MG/2 ML VIAL IVP PRN (17:00)
--- NOTE | 2020-06-02 17:09 | NUR ---
REPORT GIVEN TO NELSON OWENS AT [facility] FOR LISA
--- NOTE | 2020-06-02 17:10 | NUR ---
NON ADMIN CLICKED FOR VANCO AND ZOSYN DUE TO DUPLICATE ORDERS FROM PHARMACY.
[2020-06-02] MEDS ORDERED: IV NS 0.9% 1,000 ML IV PRN (18:02)
[2020-06-02] MEDS ORDERED: MAGNESIUM HYDROXIDE 30 ML UDC PO PRN (18:02)
[2020-06-02] MEDS ORDERED: MAG HYDROX/AL HYDROX/SIMETH 30 ML UDC PO PRN (18:02)
[2020-06-02 18:06] LABS: EOSINOPHILS % (MANUAL) 4 % (0-4); LYMPHOCYTES % (MANUAL) 3 % (16-48); MONOCYTES % (MANUAL) 9 % (0-11.0); NEUTROPHILS % (MANUAL) 84 (42-76)
--- NOTE | 2020-06-02 18:25 | NUR ---
RN NOTES PATIENT ARRIVED TO UNIT VIA GURNEY FROM ER. ALERT AND ORIENTED X 4. ON ROOM AIR WITH NO SIGNS OF RESPIRATORY DISTRESS, WITH EVEN NON-LABORED BREATHING. PATIENT DENIES ANY CHILLS OR SOB AT THIS TIME. IV ACCESS INTACT AND PATENT ON LEFT ARM, 20 GAUGE. PATIENT SKIN WARM AND DRY TO TOUCH. ISOLATION PRECAUTIONS IMPLEMENTED DUE TO PENDING COVID RESULTS. SAFETY PRECAUTIONS IMPLEMENTED WITH BED LOCKED, BED IN THE LOWEST POSITION, BILATERAL SIDE RAILS, BED ALARM ON AND CALL LIGHT WITHIN EASY REACH OF THE PATIENT. WILL ENDORSE PLAN OF CARE TO UPCOMING RN.
[2020-06-02 18:40] VITALS: BP 162/94
--- NOTE | 2020-06-02 19:00 | NUR ---
MS/RN ADMITTING NOTES: REPORT GIVEN BY NELSON BLAKE RN. RECEIVED PATIENT IN BED. ALERT AND ORIENTED X4. ON ROOM AIR SATURATING WELL. NO SOB NOTED. NO SIGNS OF RESPIRATORY DISTRESS, BREATHING EVEN AND UNLABORED. DENIES PAIN AT THIS TIME. IV ACCESS ON THE LEFT AC #20G INTACT AND PATENT. PATIENT SKIN WARM AND DRY TO TOUCH. SKIN ASSESSMENT DONE. EELEPHANTIASIS NOTED. BILATERAL LOWER EXTREMITIES CELLULITIS. PICTURE TAKEN AND DOCUMENTED. WRAPPED IN KERLIX FOR NOW. ON ISOLATION PRECAUTIONS IMPLEMENTED DUE TO PENDING COVID RESULTS. SAFETY PRECAUTIONS IMPLEMENTED WITH BED LOCKED, BED IN THE LOWEST POSITION, BILATERAL SIDE RAILS, BED ALARM ON AND CALL LIGHT WITHIN EASY REACH OF THE PATIENT. WILL CONTINUE MONITORING ACCORDINGLY.
--- NOTE | 2020-06-02 19:10 | NUR ---
MS/RN NOTES: PT. ORIENTED TO STAFF AND UNIT. BELONGINGS LIST ALREADY CHECKED. CALL LIGHT WITH IN REACH. WILL KEEP MONITORING.
[2020-06-02 20:00] VITALS: BP 130/96
[2020-06-02 20:06] LABS: BILIRUBIN,DIRECT 0.1 mg/dL (0.0-0.2); BILIRUBIN,TOTAL 0.3 mg/dL (0.2-1.0)
[2020-06-02] MEDS: ENOXAPARIN SODIUM 40 MG/0.4 ML DISP.SYRIN SQ SCH (21:42)
[2020-06-02] MEDS: PIPERACILLIN /TAZOBACTAM 3.375 G in IV D5W 50 ML IV SCH (23:27)
--- NOTE | 2020-06-03 06:28 | NUR ---
MS/RN CLOSING NOTES: PATIENT REMAINS IN BED. ALERT AND ORIENTED X4. ON ROOM AIR SATURATING WELL. NO SOB NOTED. NO SIGNS OF RESPIRATORY DISTRESS, BREATHING EVEN AND UNLABORED. DENIES PAIN AT THIS TIME. IV ACCESS ON THE LEFT AC #20G INTACT AND PATENT RUNNING INF NS AT 75MLS/HR.SAFETY PRECAUTIONS IMPLEMENTED WITH BED LOCKED, BED IN THE LOWEST POSITION, BILATERAL SIDE RAILS, BED ALARM ON AND CALL LIGHT WITHIN EASY REACH OF THE PATIENT. ALL NURSING NEEDS MET AND RENDERED. ALL DUE MEDS GIVEN ORDERED, WILL ENDORSE TO DAY SHIFT RN FOR LISA.
[2020-06-03] MEDS: PIPERACILLIN /TAZOBACTAM 3.375 G in IV D5W 50 ML IV SCH ×4 (06:46→23:45)
--- NOTE | 2020-06-03 07:29 | NUR ---
MS RN OPENING NOTE PATIENT IN BED RESTING COMFORTABLY. PATIENT IN NO ACUTE DISTRESS. NO SOB NOTED. PATIENT BREATHING IS EVEN AND UNLABORED. PATIENT SAFETY PRECAUTIONS IN PLACE. HOB IS ELEVATED. BED ALARM IS ON. MAINTAINED ISOLATION PRECAUTIONS. PATIENT BED IS LOCKED AND IN LOWEST POSITION. CALL LIGHT WITHIN REACH. WILL CONTINUE TO MONITOR.
[2020-06-03 08:00] VITALS: BP 122/75
[2020-06-03] MEDS: PANTOPRAZOLE 40 MG TABLET.DR PO SCH (08:11)
[2020-06-03 10:31] LABS: BASOPHILS # (AUTO) 0.1 /CMM (0.0-0.2); BASOPHILS % (AUTO) 1.1 % (0.0-2.0); EOSINOPHILS % (AUTO) 3.3 % (0.0-6.0); HEMATOCRIT 30 % (33-45); HEMOGLOBIN 9.5 g/dL (11.5-14.8); LYMPHOCYTES # (AUTO) 0.8 /CMM (0.8-4.8); LYMPHOCYTES % (AUTO) 11.6 % (20.0-44.0); MEAN CORPUSCULAR HGB CONC 32 g/dl (31.0-36.0); MEAN CORPUSCULAR VOLUME 84 fL (82-100); MONOCYTES # (AUTO) 0.5 /CMM (0.1-1.30); MONOCYTES % (AUTO) 6.5 % (2.0-12.0); NEUTROPHILS # (AUTO) 5.6 /CMM (1.8-8.9); NEUTROPHILS % (AUTO) 77.5 % (43.0-81.0); PLATELET COUNT (AUTO) 339 /CMM (150-450); RED BLOOD CELL COUNT(AUTO) 3.56 MIL/uL (4.0-5.2); WHITE BLOOD COUNT (AUTO) 7.2 K/uL (4.3-11.0)
[2020-06-03 11:23] LABS: CALCIUM, SERUM 8.5 mg/dL (8.5-10.1); CREATININE 1.1 mg/dL (0.6-1.3); MAGNESIUM 2.3 mg/dL (1.8-2.4)
[2020-06-03 12:00] VITALS: BP 125/81
--- NOTE | 2020-06-03 13:30 | NUR ---
MS RN NOTE [facility] ASSISTANT PERFORMED DUPLEX VENOUS AND ARTERIAL BILATERAL LOWER EXTREMITIES. CHARGE NURSE ЕЛЕНА ROCHA.
[2020-06-03] MEDS: VANCOMYCIN 1.25 GM in IV D5W 250 ML IV SCH (14:07)
[2020-06-03 16:00] VITALS: BP 139/76
--- NOTE | 2020-06-03 18:10 | NUR ---
MS CULL GRADER NOTE PATIENT TRANSFERRED TO ROOM 309-1. PATIENT IN NO ACUTE DISTRESS. PATIENT BREATHING IS EVEN AND UNLABORED. NO SOB NOTED. PATIENT TRANSFERRED SAFELY WITH BELONGINGS. REPORT GIVEN TO [place] OWENS FOR LISA.
--- NOTE | 2020-06-03 18:15 | NUR ---
MS RN RECEIVING NOTES RECEIVED TRANSFER FROM MS 2. PATIENT IS A/O X4, ON ROOM AIR; BREATHING EVEN AND UNLABORED. MIND PAIN IN THE LEFT LEG; NO REQUEST FOR PAIN MEDICATION. SAFETY PRECAUTIONS IN PLACE; BED IN LOW POSITION AND LOCKED, RAILS UP X2, CALL LIGHT WITHIN REACH. WILL CONTINUE TO MONITOR PATIENT.
--- NOTE | 2020-06-03 18:39 | NUR ---
MS RN CLOSING NOTES PATIENT REMAINS IN BED, COMFORTABLE AND IN NO DISTRESS. WILL ENDORSE TO RADIO PERFORMER NURSE.
--- NOTE | 2020-06-03 19:11 | NUR ---
MS RN: RECEIVED PATIENT Patient in bed, awake. A/O x4. Tolerating room air. BLE cellulitis with dry gauze, denies pain. Fall precaution maintained.
[2020-06-03 20:00] VITALS: BP 139/77
[2020-06-03] MEDS: ENOXAPARIN SODIUM 40 MG/0.4 ML DISP.SYRIN SQ SCH (21:13)
--- NOTE | 2020-06-03 21:14 | NUR ---
ANTICOAGULANT H/H 9.12/31 PLT 339 No symptoms of bleeding. Lovenox injection administered, co-signed by GRACIELA Siddiqui.
[2020-06-04] MEDS: PIPERACILLIN /TAZOBACTAM 3.375 G in IV D5W 50 ML IV SCH ×4 (05:29→23:50)
--- NOTE | 2020-06-04 06:18 | NUR ---
MS RN: END OF SHIFT REPORT Patient is A/O x4. Tolerating room air. On IV Zosyn and Vancomycin. BLE cellulitis/wound, dressing changed this shift, denies pain. Fall; skin precaution maintained.
--- NOTE | 2020-06-04 07:43 | NUR ---
MS RN OPENING NOTE PATIENT IN BED RESTING COMFORTABLY. PATIENT IN NO ACUTE DISTRESS. NO SOB NOTED. PATIENT BREATHING IS EVEN AND UNLABORED. PATIENT BED ALARM IS ON. HOB IS ELEVATED. PATIENT SAFETY PRECAUTIONS IN PLACE. PATIENT STATES NO PAIN AT THIS TIME. PATIENT BED IS LOCKED AND IN LOWEST POSITION. CALL LIGHT WITHIN REACH. WILL CONTINUE TO MONITOR.
[2020-06-04] MEDS: PANTOPRAZOLE 40 MG TABLET.DR PO SCH (08:10)
[2020-06-04 10:42] LABS: BASOPHILS # (AUTO) 0.1 /CMM (0.0-0.2); BASOPHILS % (AUTO) 1.4 % (0.0-2.0); EOSINOPHILS % (AUTO) 5.5 % (0.0-6.0); HEMATOCRIT 28 % (33-45); HEMOGLOBIN 8.8 g/dL (11.5-14.8); LYMPHOCYTES % (AUTO) 14.5 % (20.0-44.0); MEAN CORPUSCULAR HGB CONC 32 g/dl (31.0-36.0); MEAN CORPUSCULAR VOLUME 83 fL (82-100); MONOCYTES # (AUTO) 0.5 /CMM (0.1-1.30); MONOCYTES % (AUTO) 6.7 % (2.0-12.0); NEUTROPHILS # (AUTO) 4.9 /CMM (1.8-8.9); NEUTROPHILS % (AUTO) 71.9 % (43.0-81.0); PLATELET COUNT (AUTO) 317 /CMM (150-450); RED BLOOD CELL COUNT(AUTO) 3.31 MIL/uL (4.0-5.2); WHITE BLOOD COUNT (AUTO) 6.8 K/uL (4.3-11.0)
[2020-06-04 10:51] LABS: PHOSPHORUS 3.3 mg/dL (2.5-4.9); POTASSIUM 3.7 mmol/L (3.5-5.1)
[2020-06-04] MEDS: VANCOMYCIN 1.25 GM in IV D5W 250 ML IV SCH (14:39)
--- NOTE | 2020-06-04 18:29 | NUR ---
MS RN CLOSING NOTE PATIENT IN BED RESTING COMFORTABLY. PATIENT IN NO ACUTE DISTRESS. NO SOB NOTED. PATIENT BREATHING IS EVEN AND UNLABORED. EXPLAINED ALL DUE MEDS. PATIENT STATES NO PAIN AT THIS TIME. PATIENT KEPT CLEAN, DRY, AND COMFORTABLE THROUGHOUT SHIFT. NEEDS AND CONCERNS ADDRESSED. PATIENT BED ALARM IS ON. PATIENT SAFETY PRECAUTIONS IN PLACE. PATIENT BED IS LOCKED AND IN LOWEST POSITION. CALL LIGHT WITHIN REACH. WILL ENDORSE CARE TO PM SHIFT FOR LISA.
[2020-06-04 20:00] VITALS: BP 132/66
--- NOTE | 2020-06-04 20:52 | NUR ---
REFUSED FRIDAY PICTURES. PT REFUSED PICTURES. STATES, " IREALLY DONT WANT TO TO IT NOW. ID LIKE THEM TO DO IT TOMORROW WHEN THEY HAVE TO CHANGE THE DRESSING. I REALLY DONT WANT TO HAVE IT REMOVED RIGHT NOW." WILL ENDORSE TO AM SHIFT.
--- NOTE | 2020-06-04 20:52 | NUR ---
22 GAUGE LEFT AC INFILTRATED EXTREMITY SWOLLEN AT IV SITE PLUS 1 NON PITTING. IV REMOVED 22GAUGE INTAC. EXTREMITY ELEVATED ON PILLOW.
[2020-06-04] MEDS: ENOXAPARIN SODIUM 40 MG/0.4 ML DISP.SYRIN SQ SCH (21:56)
[2020-06-05] MEDS: PIPERACILLIN /TAZOBACTAM 3.375 G in IV D5W 50 ML IV SCH ×3 (05:22→18:00)
[2020-06-05 05:54] LABS: BASOPHILS % (AUTO) 0.7 % (0.0-2.0); EOSINOPHILS % (AUTO) 7.4 % (0.0-6.0); HEMATOCRIT 26 % (33-45); HEMOGLOBIN 8.4 g/dL (11.5-14.8); LYMPHOCYTES # (AUTO) 1.2 /CMM (0.8-4.8); LYMPHOCYTES % (AUTO) 22.4 % (20.0-44.0); MEAN CORPUSCULAR HGB CONC 32 g/dl (31.0-36.0); MEAN CORPUSCULAR VOLUME 83 fL (82-100); MONOCYTES # (AUTO) 0.5 /CMM (0.1-1.30); MONOCYTES % (AUTO) 8.5 % (2.0-12.0); NEUTROPHILS # (AUTO) 3.3 /CMM (1.8-8.9); PLATELET COUNT (AUTO) 317 /CMM (150-450); RED BLOOD CELL COUNT(AUTO) 3.18 MIL/uL (4.0-5.2); WHITE BLOOD COUNT (AUTO) 5.5 K/uL (4.3-11.0)
[2020-06-05 06:04] LABS: CALCIUM, SERUM 8.2 mg/dL (8.5-10.1); CREATININE 1.1 mg/dL (0.6-1.3); MAGNESIUM 2.2 mg/dL (1.8-2.4); PHOSPHORUS 3.8 mg/dL (2.5-4.9); POTASSIUM 4.2 mmol/L (3.5-5.1)
--- NOTE | 2020-06-05 06:55 | NUR ---
MS RN CLOSING NOTE PATIENT IN BED RESTING COMFORTABLY. PATIENT IN NO ACUTE DISTRESS. NO SOB NOTED. PATIENT BREATHING IS EVEN AND UNLABORED. PATIENT BED ALARM IS ON. PATIENT SAFETY PRECAUTIONS IN PLACE. PATIENT BED IS LOCKED AND IN LOWEST POSITION. CALL LIGHT WITHIN REACH. WILL ENDORSE CARE TO AM SHIFT FOR LISA.
[2020-06-05 08:00] VITALS: BP 129/81
[2020-06-05] MEDS: PANTOPRAZOLE 40 MG TABLET.DR PO SCH (08:35)
--- NOTE | 2020-06-05 09:51 | NUR ---
WOUND CARE CONSULT: PT REFUSED FULL SKIN ASSESSMENT. PT IS AMBULATORY AND CONTINENT AND PRESENTS WITH BILATERAL LOWER LEG DRESSINGS WHICH ARE DRY AND INTACT. DR CARABALLO NOTIFIED OF DPM CONSULT REQUEST. WILL SEE PRN. CALIX IN AGREEMENT WITH PLAN OF CARE.
[2020-06-05] MEDS: VANCOMYCIN 1.25 GM in IV D5W 250 ML IV SCH (15:08)
[2020-06-05 16:00] VITALS: BP 127/74
--- NOTE | 2020-06-05 18:06 | NUR ---
MS RN NOTES PATIENT IN BED RESTING. NO SOB OR ACUTE DISTRESS NOTED. ALL DUE MEDICATIONS ADMINISTERED. ALL NEEDS MET. NO ACUTE CHANGES NOTED. PATIENT WAS SEEN BY PODIATRY, WOUND CARE PERFORMED PER NEW ORDERS. NO DRAINAGE NOTED, WOUNDS ARE CLEAN. WILL ENDORSE CARE TO PM SHIFT.
--- NOTE | 2020-06-05 19:25 | NUR ---
MS RN PM OPENING NOTE REPORT RECIEVED FROM VERONICA OWENS. PATIENT IN BED RESTING. NO SOB OR ACUTE DISTRESS NOTED. AXOX4. PER REPORT PATIENT WAS SEEN BY PODIATRY, WOUND CARE PERFORMED PER NEW ORDERS WITH DRY DRESSING. DRESSINGS ARE DRY WITH NO SIGNS OF DRAINAGE. REVIEWED PLAN OF CARE, QUESTIONS CONCERNS ADDRESSED. WILL CONT TO MONITOR.
[2020-06-05 20:38] VITALS: BP 160/91
[2020-06-05] MEDS: ENOXAPARIN SODIUM 40 MG/0.4 ML DISP.SYRIN SQ SCH (21:49)
[2020-06-06] MEDS: PIPERACILLIN /TAZOBACTAM 3.375 G in IV D5W 50 ML IV SCH ×4 (00:28→17:34)
[2020-06-06 06:17] LABS: CALCIUM, SERUM 8.3 mg/dL (8.5-10.1); CREATININE 1.2 mg/dL (0.6-1.3); POTASSIUM 4.2 mmol/L (3.5-5.1)
[2020-06-06 08:00] VITALS: BP 144/80
[2020-06-06] MEDS: PANTOPRAZOLE 40 MG TABLET.DR PO SCH (08:33)
--- NOTE | 2020-06-06 11:00 | NUR ---
Elizabeth YBARRA DISTRIBUTOR OPERATOR IN AND DC ORDER GIVEN.
--- NOTE | 2020-06-06 14:00 | NUR ---
WOUND CULTURE DONE OF LT. ANKLE PER ORDERS.LEGS REWRAPPED.
[2020-06-06] MEDS: VANCOMYCIN 1.25 GM in IV D5W 250 ML IV SCH (14:10)
--- NOTE | 2020-06-06 14:30 | NUR ---
DC PHOTOS TAKEN
--- NOTE | 2020-06-06 14:30 | NUR ---
DISCHARGE PHOTOS TAKEN AND IN CHART.
[2020-06-06 16:00] VITALS: BP 137/78
--- NOTE | 2020-06-06 17:35 | NUR ---
PT. MADE READY FOR DISCHARGE.ALL PAPERS SIGNED INCLUDING BELONGING SHEET. REPORT CALLED TO FACILITY.RELUCTANT AT FACILITY TO TAKE REPORT.STATED THEY KNEW HER.REPORT TO BEADER.TRANSPORTED VIA AMBULANCE TO FACILITY. Addendum: 06/06/20 at 1909 by ELYSSA CHEN RN ALL ABOVE INFO ON INCORRECT PT. Addendum: 06/06/20 at 1910 by ELYSSA CHEN RN ABOVE INFO INCORRECT.
--- NOTE | 2020-06-06 18:35 | NUR ---
ALL PAPERS SIGNED.HEP LOCK OUT. REPORT TO DRIVERS.REPORT CALLED TO FACILITY. TRANSPORTED TO FACILITY VIA AMBULANCE.
== END 2020-06-06 18:30 | DRG 603 ==
LOC: ER 14:59 → MEDSG2 17:58 → MED 06-03 18:04
PROVIDERS: ADMIT Nurse Practitioner Acute Care; ATTEND Nurse Practitioner Acute Care
DX: L03.115 Cellulitis of right lower limb (principal); E87.2 Acidosis; L03.116 Cellulitis of left lower limb; D64.9 Anemia, unspecified; I25.10 Atherosclerotic heart disease of native coronary artery without angina pectoris; I89.0 Lymphedema, not elsewhere classified; D36.7 Benign neoplasm of other specified sites; E66.9 Obesity, unspecified; I10 Essential (primary) hypertension; Z88.2 Allergy status to sulfonamides; Z90.710 Acquired absence of both cervix and uterus; I73.9 Peripheral vascular disease, unspecified; Z68.33 Body mass index [BMI] 33.0-33.9, adult; D36.9 Benign neoplasm, unspecified site; D89.89 Other specified disorders involving the immune mechanism, not elsewhere classified
CPT/HCPCS: 36415; 80048-TC; 80061-TC; 80202-TC; 82247-TC; 82248-TC; 83605-TC; 83735-TC; 84100-TC; 85025-TC; 87040-TC; 87070-TC; 87081-TC; 87186-TC; 93970-TC; A6253; A6403; G0378; J1650; J2543; J3370; J7030; J7050; J7060; U0003

== ENCOUNTER 2020-11-23 10:45 | Outpatient (CLI) | payer MEDICARE, OTHER ==
[2020-11-23] MEDS ORDERED: DAKINS HALF STRENGTH (0.25%) 480 ML BOTTLE ONE (11:07)
== END 2020-11-23 23:59 | disposition home or self-care (01) ==
LOC: WOU 10:45
PROVIDERS: ATTEND Podiatrist Foot & Ankle Surgery
DX: I87.313 Chronic venous hypertension (idiopathic) with ulcer of bilateral lower extremity (principal); L97.821 Non-pressure chronic ulcer of other part of left lower leg limited to breakdown of skin; L97.811 Non-pressure chronic ulcer of other part of right lower leg limited to breakdown of skin; I89.0 Lymphedema, not elsewhere classified; I73.9 Peripheral vascular disease, unspecified; R26.2 Difficulty in walking, not elsewhere classified; I10 Essential (primary) hypertension; Z79.899 Other long term (current) drug therapy
CPT/HCPCS: G0463

== ENCOUNTER 2020-12-11 10:25 | Outpatient (CLI) | payer MEDICARE, OTHER ==
[2020-12-11 11:40] LABS: BASOPHILS % (AUTO) 0.2 % (0.0-2.0); EOSINOPHILS % (AUTO) 1.6 % (0.0-6.0); HEMATOCRIT 33 % (33-45); HEMOGLOBIN 10.3 g/dL (11.5-14.8); LYMPHOCYTES # (AUTO) 0.9 /CMM (0.8-4.8); LYMPHOCYTES % (AUTO) 8.8 % (20.0-44.0); MEAN CORPUSCULAR HGB CONC 32 g/dl (31.0-36.0); MEAN CORPUSCULAR VOLUME 86 fL (82-100); MONOCYTES # (AUTO) 0.4 /CMM (0.1-1.30); MONOCYTES % (AUTO) 4.6 % (2.0-12.0); NEUTROPHILS # (AUTO) 8.3 /CMM (1.8-8.9); NEUTROPHILS % (AUTO) 84.8 % (43.0-81.0); PLATELET COUNT (AUTO) 396 /CMM (150-450); RED BLOOD CELL COUNT(AUTO) 3.79 MIL/uL (4.0-5.2); WHITE BLOOD COUNT (AUTO) 9.8 K/uL (4.3-11.0)
[2020-12-11 12:02] LABS: ALBUMIN 2.9 g/dL (3.4-5.0); BILIRUBIN,TOTAL 0.3 mg/dL (0.2-1.0); CALCIUM, SERUM 8.8 mg/dL (8.5-10.1); CREATININE 1.2 mg/dL (0.6-1.3); POTASSIUM 4.3 mmol/L (3.5-5.1); TOTAL PROTEIN, SERUM 8.1 g/dL (6.4-8.2)
[2020-12-11] MEDS ORDERED: UREA 10% -AHA 4% CREAM 57 GM TUBE ONE (13:26)
== END 2020-12-11 23:59 | disposition home or self-care (01) ==
LOC: WOU 10:25
PROVIDERS: ATTEND Podiatrist Foot & Ankle Surgery
DX: I87.313 Chronic venous hypertension (idiopathic) with ulcer of bilateral lower extremity (principal); I89.0 Lymphedema, not elsewhere classified; L97.822 Non-pressure chronic ulcer of other part of left lower leg with fat layer exposed; L97.812 Non-pressure chronic ulcer of other part of right lower leg with fat layer exposed; I73.9 Peripheral vascular disease, unspecified; R26.2 Difficulty in walking, not elsewhere classified; Z79.899 Other long term (current) drug therapy
CPT/HCPCS: 36415; 80053; 84134; 85025; G0463

== ENCOUNTER 2020-12-25 15:42 | Inpatient (IN) | payer MEDICARE, OTHER ==
[~2020-12-25] VITALS: Ht 167.6 cm; Wt 94.3 kg
[2020-12-25] MEDS ORDERED: MULT-447 PO (16:41)
[2020-12-25] MEDS ORDERED: PYRI100T10 PO (16:41)
[2020-12-25] MEDS ORDERED: CYAN-51 PO (16:41)
--- NOTE | 2020-12-25 16:49 | NUR ---
PAGED [facility]. HEATHER SALDIVAR ON-CALL. AWAITING FOR CALL BACK.
[2020-12-25] MEDS ORDERED: PIPERACILLIN /TAZOBACTAM 3.375 G in IV D5W 50 ML IV ONE (17:00)
[2020-12-25] MEDS ORDERED: VANCOMYCIN 1 GM in IV D5W 250 ML IV ONE (17:00)
--- NOTE | 2020-12-25 17:01 | NUR ---
MOVE SHEET SUBMITTED AND CALLED FOR MS BED.
[2020-12-25 17:39] LABS: BASOPHILS # (AUTO) 0.1 /CMM (0.0-0.2); BASOPHILS % (AUTO) 0.8 % (0.0-2.0); EOSINOPHILS % (AUTO) 0.8 % (0.0-6.0); HEMATOCRIT 31 % (33-45); HEMOGLOBIN 9.9 g/dL (11.5-14.8); LYMPHOCYTES % (AUTO) 10.1 % (20.0-44.0); MEAN CORPUSCULAR HGB CONC 32 g/dl (31.0-36.0); MEAN CORPUSCULAR VOLUME 86 fL (82-100); MONOCYTES # (AUTO) 0.7 /CMM (0.1-1.30); NEUTROPHILS # (AUTO) 8.3 /CMM (1.8-8.9); NEUTROPHILS % (AUTO) 81.3 % (43.0-81.0); PLATELET COUNT (AUTO) 337 /CMM (150-450); WHITE BLOOD COUNT (AUTO) 10.2 K/uL (4.3-11.0)
--- NOTE | 2020-12-25 17:45 | NUR ---
pt is hard stick. mid line ordered. will start medication as soon as mid line is in.
[2020-12-25 17:47] LABS: CREATININE 1.5 mg/dL (0.6-1.3); POTASSIUM 4.7 mmol/L (3.5-5.1)
--- NOTE | 2020-12-25 17:58 | NUR ---
CALLED FOR MIDLINE
[2020-12-25] MEDS ORDERED: MAG HYDROX/AL HYDROX/SIMETH 30 ML UDC PO PRN (18:00)
[2020-12-25] MEDS ORDERED: Z GUARD REMEDY 2 OZ OINT TP PRN (18:00)
[2020-12-25] MEDS ORDERED: PIPERACILLIN /TAZOBACTAM 3.375 G in IV D5W 50 ML IV SCH (18:00)
[2020-12-25] MEDS ORDERED: ONDANSETRON HCL/PF 4 MG/2 ML VIAL IVP PRN (18:00)
[2020-12-25] MEDS ORDERED: MAGNESIUM HYDROXIDE 30 ML UDC PO PRN (18:00)
[2020-12-25] MEDS ORDERED: ACETAMINOPHEN 325 MG TABLET PO PRN (18:00)
[2020-12-25 18:01] LABS: ALBUMIN 2.8 g/dL (3.4-5.0); BILIRUBIN,TOTAL 0.1 mg/dL (0.2-1.0); TOTAL PROTEIN, SERUM 7.8 g/dL (6.4-8.2)
[2020-12-25] MEDS ORDERED: PIPERACILLIN /TAZOBACTAM 3.375 G VIAL IV ONE (19:58)
[2020-12-25] MEDS ORDERED: VANCOMYCIN 1 GM VIAL ONE (19:58)
[2020-12-25 20:01] LABS: BILIRUBIN,URINE Negative (NEGATIVE); COLOR,URINE YELLOW (YELLOW); LEUKOCYTE ESTERASE ,URINE Small (NEGATIVE); NITRITE, URINE Negative (NEGATIVE); PROTEIN,URINE Negative (NEGATIVE); UGLUCOSE Negative (NEGATIVE); UROBILINOGEN,URINE 0.2 EU/dL (0.2)
[2020-12-25 20:04] LABS: BACTERIA,URINE 1+ /HPF (None Seen); SQUAMOUS EPITHELIAL CELL,UR Few /HPF (None Seen)
--- NOTE | 2020-12-25 20:27 | NUR ---
REPORT GIVEN TO GRACIELA CLARK FOR LISA
[2020-12-25 20:54] VITALS: BP 137/54
[2020-12-25 21:00] VITALS: BP 137/54
--- NOTE | 2020-12-25 21:00 | NUR ---
PT TRANSPORTED TO [facility] ON STABLE CONDITION. NAD NOTED DURING TRANSPORT
--- NOTE | 2020-12-25 21:00 | NUR ---
ADMISSION NOTE PATIENT ADMITTED BY JANNA CLOUD OPERATIONS ENGINEER TO [facility] FOR BLE CELLULITIS. PT CC WAS STATING SHE CAME IN TO ER BECAUSE OF CONCERN FOR PARASITES. BOTTLE OF BUGS FROM HOME SENT UP FROM ER AND NEW ORDERS FOR IT TO BE SUBMITTED TO LAB. PATIENT HAS BILATERAL LOWER EXTREMITY LYMPH EDEMA AND LEGS BANDAGED WITH NO SIGNIFICANT DRAINAGE SEEN. PT IS WHEEL CHAIR BOUND. PATEINT MOVED FROM GURNEY TO BED. PATIENT ORIENTED TO ROOM. VERBALIZED UNDERSTANDING TO USE CALL LIGHT FOR ASSISTANNCE BED ALARM ACTIVATED HFR. PATIENT PLACED ON CONTACT ISOLATION FOR UNKNOWN BUG/WOUND INFECTION OF BILATERAL LEGS. ADMISSION ASSESSMENT TO BE PERFORMED.
--- NOTE | 2020-12-25 22:00 | NUR ---
VANCOMYCIN MISSED DOSE 1 GM VANCOMYCIN GIVEN IN ER.
--- NOTE | 2020-12-25 22:05 | NUR ---
MATHIEU ROMERO INFECTIOUS DISEASE IN TO SEE PATIENT FOR CONSULT.
[2020-12-25] MEDS: VANCOMYCIN 1 GM in IV D5W 250ml IV SCH (22:08)
[2020-12-25] MEDS: ENOXAPARIN SODIUM 40 MG/0.4 ML DISP.SYRIN SQ SCH (22:29)
[2020-12-25] MEDS ORDERED: CEFTRIAXONE 1 G VIAL ONE (22:48)
[2020-12-25] MEDS: CEFTRIAXONE 1 G in IV D5W 50 ML IV SCH (23:44)
[2020-12-26 06:46] LABS: BASOPHILS # (AUTO) 0.1 /CMM (0.0-0.2); HEMATOCRIT 26 % (33-45); HEMOGLOBIN 8.4 g/dL (11.5-14.8); MEAN CORPUSCULAR HGB CONC 33 g/dl (31.0-36.0); MEAN CORPUSCULAR VOLUME 86 fL (82-100); MONOCYTES # (AUTO) 0.6 /CMM (0.1-1.30); MONOCYTES % (AUTO) 8.2 % (2.0-12.0); NEUTROPHILS # (AUTO) 5.9 /CMM (1.8-8.9); NEUTROPHILS % (AUTO) 74.8 % (43.0-81.0); PLATELET COUNT (AUTO) 279 /CMM (150-450); WHITE BLOOD COUNT (AUTO) 7.9 K/uL (4.3-11.0)
--- NOTE | 2020-12-26 07:22 | NUR ---
MSRN OPENING NOTES RECIEVED PT IN BED SLEEPING, TOLERATING RA WELL , VIANCA MIDLINE PRESENT ON LEFT ARM , PATENT FLUSHING WELL , BED ON LOWEST POSITION, SIDE RAILS UP X2 AND LOCKED FOR SAFETY. WHEELCHAIR PRESENT NEXT TO BED AOX4, AMBULATORY WITH WHEELCHAIR AND TO SITTING CHAIR. CALL LIGHT WITHIN EASY REACH AND ANSWERED PROMPTLY.
[2020-12-26 07:23] LABS: THYROID STIMULATING HORMONE 2.535 uIU/mL (0.358-3.74)
[2020-12-26 07:31] LABS: CALCIUM, SERUM 7.9 mg/dL (8.5-10.1); CREATININE 1.4 mg/dL (0.6-1.3); MAGNESIUM 1.9 mg/dL (1.8-2.4); POTASSIUM 4.6 mmol/L (3.5-5.1)
[2020-12-26] MEDS: PANTOPRAZOLE 40 MG TABLET.DR PO SCH (07:50)
[2020-12-26 08:00] VITALS: BP 96/46
--- NOTE | 2020-12-26 08:44 | NUR ---
WOUND CARE CONSULT: PT HAS HISTORY OF CHRONIC LYMPHEDEMA AND HAS CURRENT CARLOS SCORE OF 20. DR CARABALLO NOTIFIED OF PT ADMISSION. IN AGREEMENT WITH PLAN OF CARE.
[2020-12-26] MEDS: PYRIDOXINE HCL 50 MG TABLET PO SCH (08:53)
[2020-12-26] MEDS: CYANOCOBALAMIN 500 MCG TABLET PO SCH (08:53)
[2020-12-26] MEDS: MULTIVIT W/MINERALS 1 TAB TABLET PO SCH (08:53)
[2020-12-26 16:00] VITALS: BP 96/40
--- NOTE | 2020-12-26 16:11 | NUR ---
SS consult received. SW will follow up.
--- NOTE | 2020-12-26 17:10 | NUR ---
MSRN OPENING NOTES RECIEVED PT IN BED SLEEPING, TOLERATING RA WELL , VIANCA MIDLINE PRESENT ON LEFT ARM , PATENT FLUSHING WELL , BED ON LOWEST POSITION, SIDE RAILS UP X2 AND LOCKED FOR SAFETY. WHEELCHAIR PRESENT NEXT TO BED AOX4, AMBULATORY WITH WHEELCHAIR AND TO SITTING CHAIR. CALL LIGHT WITHIN EASY REACH AND ANSWERED PROMPTLY. Addendum: 12/26/20 at 1710 by JULIO GARCIA RN *CLOSING*
--- NOTE | 2020-12-26 19:19 | NUR ---
MS RN OPENING PATIENT IN BED. A/OX4. NO S/S OF DISTRESS. NO C/O PAIN AT THE MOMENT. NO IV FLUIDS RUNNING. BLE WRAPPED IN GAUZE. SAFETY IN PLACE: BED IN LOWEST, LOCKED POSITION; CALL LIGHT WITHIN REACH. WILL CONTINUE TO MONITOR.
[2020-12-26 20:00] VITALS: BP 106/50
[2020-12-26] MEDS ORDERED: PIPERACILLIN /TAZOBACTAM 3.375 G in IV D5W 50 ML IV SCH ×2 (20:00)
[2020-12-26] MEDS: ENOXAPARIN SODIUM 40 MG/0.4 ML DISP.SYRIN SQ SCH (20:19)
[2020-12-26] MEDS: VANCOMYCIN 1 GM in IV D5W 250ml IV SCH (21:01)
[2020-12-26] MEDS: CEFTRIAXONE 1 G in IV D5W 50 ML IV SCH (22:31)
[2020-12-27 06:59] LABS: BASOPHILS # (AUTO) 0.1 /CMM (0.0-0.2); BASOPHILS % (AUTO) 0.8 % (0.0-2.0); EOSINOPHILS % (AUTO) 3.8 % (0.0-6.0); HEMATOCRIT 29 % (33-45); HEMOGLOBIN 9.4 g/dL (11.5-14.8); LYMPHOCYTES # (AUTO) 1.1 /CMM (0.8-4.8); LYMPHOCYTES % (AUTO) 16.3 % (20.0-44.0); MEAN CORPUSCULAR HGB CONC 32 g/dl (31.0-36.0); MEAN CORPUSCULAR VOLUME 87 fL (82-100); MONOCYTES # (AUTO) 0.5 /CMM (0.1-1.30); NEUTROPHILS # (AUTO) 4.9 /CMM (1.8-8.9); NEUTROPHILS % (AUTO) 72.1 % (43.0-81.0); PLATELET COUNT (AUTO) 295 /CMM (150-450); RED BLOOD CELL COUNT(AUTO) 3.36 MIL/uL (4.0-5.2); WHITE BLOOD COUNT (AUTO) 6.8 K/uL (4.3-11.0)
--- NOTE | 2020-12-27 07:06 | NUR ---
MS RN CLOSING PATIENT IN BED. A/OX4. NO S/S OF DISTRESS. NO C/O PAIN TYSHAWN. PATIENT ABLE TO MAKE NEEDS KNOWN. ALL NEEDS ATTENDED. ALL SCHEDULED MEDS ADMINISTERED. WOUND CARE DONE, DRESSING CHANGED. SAFETY KEPT IN PLACE THE WHOLE SHIFT: BED IN LOWEST, LOCKED POSITION. CALL LIGHT WITHIN REACH. WILL ENDORSE CARE TO MORNING RN.
[2020-12-27 07:15] LABS: CALCIUM, SERUM 8.3 mg/dL (8.5-10.1); CREATININE 1.2 mg/dL (0.6-1.3); MAGNESIUM 2.1 mg/dL (1.8-2.4); POTASSIUM 4.5 mmol/L (3.5-5.1)
[2020-12-27 08:00] VITALS: BP 96/56
[2020-12-27] MEDS: MULTIVIT W/MINERALS 1 TAB TABLET PO SCH (09:07)
[2020-12-27] MEDS: HYDROCODONE/APAP 5/325MG TABLET PO PRN ×2 (09:09→21:14)
[2020-12-27] MEDS: CYANOCOBALAMIN 500 MCG TABLET PO SCH (09:10)
[2020-12-27] MEDS: PYRIDOXINE HCL 50 MG TABLET PO SCH (09:10)
[2020-12-27] MEDS: PANTOPRAZOLE 40 MG TABLET.DR PO SCH (09:14)
[2020-12-27] MEDS: SOD FERRIC GLUC 125 MG in IV NS 0.9% 100 ML IV SCH (14:55)
--- NOTE | 2020-12-27 15:26 | NUR ---
Concrete Mixer Loader Truck Mounted note: marketing services manager consult received for patient who currently lives alone. SS will follow up with the patient at a later time.
[2020-12-27 16:00] VITALS: BP 113/70
--- NOTE | 2020-12-27 18:00 | NUR ---
MS RN CLOSING NOTE PT IA AWAKE, A/O X4 .CALL [place] WITHIN REACH, BED IN LOW POSITION WITH TWO SIDE RAILS UP, PATIENT DENIES PAIN, SHE IS RESTING ON HER BED. WILL GIVE REPORT TO CLEANER OPERATOR TO CONTINUE WITH CARE
--- NOTE | 2020-12-27 19:30 | NUR ---
MS RN OPENING NOTE RECEIVED PATIENT IN BED. A/OX4. TOLERATING ROOM AIR. RESPIRATIONS ARE EVEN AND UNLABORED. NO S/S SOB NOTED. NO C/O PAIN AT THIS TIME. IN NO APPARENT DISTRESS. IV ACCESS IN VIANCA MIDLINE PATENT AND SALINE LOCKED. BED IS LOW ND LOCKED, HOB ELEVATED IN SEMI FOWLERS, SIDE RIALS UP X2, CALL LIGHT WITHIN REACH. WILL CONTINUE TO MONITOR.
--- NOTE | 2020-12-27 19:50 | NUR ---
MS RN NOTE CALLED LAB TO DRAW BLOOD FOR VANCO TROUGH
[2020-12-27 20:00] VITALS: BP 105/57
[2020-12-27] MEDS: VANCOMYCIN 1 GM in IV D5W 250ml IV SCH (21:03)
[2020-12-27] MEDS: ENOXAPARIN SODIUM 40 MG/0.4 ML DISP.SYRIN SQ SCH (21:03)
[2020-12-27] MEDS: CEFTRIAXONE 1 G in IV D5W 50 ML IV SCH (22:09)
[2020-12-28 06:37] LABS: BASOPHILS % (AUTO) 0.3 % (0.0-2.0); EOSINOPHILS % (AUTO) 4.3 % (0.0-6.0); HEMATOCRIT 28 % (33-45); LYMPHOCYTES # (AUTO) 1.2 /CMM (0.8-4.8); LYMPHOCYTES % (AUTO) 17.6 % (20.0-44.0); MEAN CORPUSCULAR HGB CONC 32 g/dl (31.0-36.0); MEAN CORPUSCULAR VOLUME 86 fL (82-100); MONOCYTES # (AUTO) 0.5 /CMM (0.1-1.30); MONOCYTES % (AUTO) 7.1 % (2.0-12.0); NEUTROPHILS % (AUTO) 70.7 % (43.0-81.0); PLATELET COUNT (AUTO) 312 /CMM (150-450); RED BLOOD CELL COUNT(AUTO) 3.21 MIL/uL (4.0-5.2)
--- NOTE | 2020-12-28 06:47 | NUR ---
MS RN CLOSING NOTE PATIENT RESTING IN BED. A/OX4. REMAINS TOLERATING ROOM AIR. MANAGED PAIN WITH NORCO 5. NO DISTRESS. WOUND CARE PROVIDED. IV ACCESS IN VIANCA MIDLINE MAINTAINED. BED REMAINS LOW AND LOCKED, HOB ELEVATED IN SEMI FOWLERS, SIDE RIALS UP X2, CALL LIGHT WITHIN REACH. WILL ENDORSE TO ONCOMING SHIFT.
[2020-12-28 07:06] LABS: CALCIUM, SERUM 8.2 mg/dL (8.5-10.1); CREATININE 1.2 mg/dL (0.6-1.3); PHOSPHORUS 3.1 mg/dL (2.5-4.9); POTASSIUM 4.1 mmol/L (3.5-5.1)
--- NOTE | 2020-12-28 07:20 | NUR ---
ms rn received on bed, awake,alert,oriented x4,not in any form of distress, respirations even and unlabored,no sob noted, lungs are clear,abdomen soft,positive bowel sounds,denies pain at this time, foot elevated w/ pillows w/ dressing dry and intact, patient denies pain at this time, will monitor patient.
[2020-12-28 08:00] VITALS: BP 95/55
[2020-12-28] MEDS: PYRIDOXINE HCL 50 MG TABLET PO SCH (08:33)
[2020-12-28] MEDS: PANTOPRAZOLE 40 MG TABLET.DR PO SCH (08:33)
[2020-12-28] MEDS: MULTIVIT W/MINERALS 1 TAB TABLET PO SCH (08:33)
[2020-12-28] MEDS: CYANOCOBALAMIN 500 MCG TABLET PO SCH (08:33)
--- NOTE | 2020-12-28 09:00 | NUR ---
ms allen breakfast served,due meds given,tolerated well.
[2020-12-28] MEDS ORDERED: CEFT1VIA14 IJ (12:57)
[2020-12-28] MEDS ORDERED: ENOX40DI SQ (12:57)
[2020-12-28] MEDS: SOD FERRIC GLUC 125 MG in IV NS 0.9% 100 ML IV SCH (13:44)
--- NOTE | 2020-12-28 14:00 | NUR ---
ms rn patient is getting ready for discharge today,no distress noted, ferlicit iv given.
[2020-12-28 16:00] VITALS: BP 131/68
--- NOTE | 2020-12-28 16:25 | NUR ---
SS Consult completed to discuss plan of care as patient currently lives alone. The pt. is a 65 year olf black female. Pt. is being D/C to [facility] [phone]. Pt. has IHSS at home and lives in a apartment for disabled individuals with appropriate DME. [facility] provided pt. with geriatric resources and pt. accepted them. Addendum: 12/29/20 at 1125 by MICAH GREGORY Resources provided include: ABUSE PREVENTION: ELDER ABUSE HOTLINE (24/02) ADULT PROTECTIVE SERVICES HOTLINE LONG-TERM CARE [facility] Region AREA ON AGING (HOTLINE) ADULT DAY HEALTH CARE CARE CENTERS: Private pay or [facility] funded adult day care [facility] Adult [facility] , [facility] Services , [facility] , [facility] Adult [facility] Care , [facility] Adult [facility] Health Care , [facility] , [place] ONE Generation [place] , [facility] , [place] ALZHEIMERS DISEASE/DEMENTIA: Alzheimers Association Helpline [facility] Chapter www.alz.org/[facility] Department of Aging www.lacity.org Family Caregiver [place] www.caregiver.org [place] Caregiver Resources Center/Family Support www.[facility].org CANCER RESOURCES: Romanian Cancer Society www.cancer.org Cancer Support Community www.CancerSupportVvsb.org: CancerCare www.cancercare.org [facility] Cancer Support [place] www.[facility].org [facility] HEALTH ASSOCIATIONS: AARP www.aarp.org ALS Association (ask for Sanjana) www.als.org Romanian Diabetes Association www.diabetes.org Romanian Heart Association www.heart.org Romanian Lung Association www.lungusa.org Romanian Parkinson Disease Association www.apdaparkinson.org [place] , www.redcross.org Arthritis Foundation www.arthritis.org Crohns & Colitis Foundation of Romanian www.ccfa.org/chapters/peter National Multiple Sclerosis Society www.nationalmssociety.org Myasthenia Gravis Foundation www.myasthenia-ca.org National Stroke Association www.stroke.org CONSERVATORSHIP & GUARDIANSHIP: AARP Hanh Hernandez Legal Services Center for Health Care Rights Eldercare Information and Referral Machine Silk Screen Printer Foundation [facility]: [facility] Bar Referral Service [facility] Legal Services Office of the Public Guardian [place] EYESIGHT DISORDER RESOURCES: Romanian Macular Degeneration Foundation [facility] www.[facility].org GRIEF AND BEREAVEMENT RESOURCES: The [facility] , [facility] THE HOPE Connection , [facility] Bereavement Center , [place] HEARING DISORDER RESOURCES: ScreenScape Networks Telephone Access Program Deaf and Disabled Telecommunications Program www.ddtp.cpu.ca.gov HearRx Hearing Centers ([place]) Better Hearing Systems , [place] GLAD ([facility] Agency on Deafness) V/ TTY; Rum Processing Operator , [facility] Hearing [facility] [place] -low income hearing aid assistance www.adventhealth delandfoundation.org [place] [facility] , Luis Daniel HELP AT HOME CAREGIVER SUPPORT: In Home Support Services (Must have Medi-Pee to be eligible) *Ask for a list of agencies that provide services to assist with care in the home. Local Senior Centers also have listings of care providers. HOME SAFETY MODIFICATIONS AND EQUIPMENT: Senior centers have additional referrals. ID Housing and Community Investment Dept. Handyworker Program (low income) or Visit http://hcidla.lacity.org/qbk-oazbrp-xl for more information National Seating and Mobility and/or ; Forever Active www.foreveractivemed.com Stay Home Safe www.Stayhomesafe.com LIFE ALERT RESPONSE SYSTEM: Fifi Lifeline Services 923-730-5755 www. Orthopaedic Synergy Life Alert 524-205-8478 www.EcoDomus.Stratos Gen[employer] Life Station 553-437-6229 www.uVore.Strat[employer] Genomics Safe Return 475-848-3089 www.alz.or/safereturn Cell Phones for Seniors www.BuildingLayer MEALS AND FOOD PROGRAMS: [place] Meals on Wheels [phone] [place] Meals on Wheels [phone] [facility] [phone] [place] to the Homebound [phone] [place] to the Homebound [phone] [facility] to the Homebound [phone] [facility] to the Homebound [phone] [facility] [phone] [facility] [phone] ONE Generation [phone] [facility] [phone] [facility] [phone] Meals on Wheels [phone] For all ages: $6.85/ meal w side. Delivered M-F from 10 am-1pm. Application and payment is done over the phone. Frozen meals available for weekends. Emergency Food Coalbanner [phone] [facility] Reciprocating Drill Operator [phone] [facility] [phone] [facility]- Brown bag lunches [phone] [facility] [phone] MEAL/GROCERY DELIVERY PROGRAMS: [facility] Gourmet Meals [phone]- [facility] [phone]- [facility] Magic Kitchen [phone] Moms Meals [phone] (ask [place]as for Discount Select grocery stores may provide delivery. MEDICAL INSURANCE SUPPORT SERVICES: Center for Health Care Rights [phone] Health Insurance Counseling/Advocacy Programs (HICAP)-Must have Medicare. Offers counseling for Medi-Pee eligibility [phone] Department of Public Reciprocating Drill Operator [phone] www.[facility].ca.gov Medicare 676-737-7489 www.socialsecurity.org Social Security [phone] SENIOR ACTIVITY PROGRAMS: *Contact a local senior center, adult school, recreation facility or community [facility] for education, fitness, recreation, and social programs. Aquatic Therapy and Adapted Exercise programs through [facility] [phone] Encore at [facility] [phone] www.[facility]/encore U- Senior Friends [phone] [place] Senior Programs [phone] www.oasisnet.org Suddenly 65 www.ncryuuxo70.Stratos Genomics SENIOR CENTERS: [facility] [phone] [facility] For Women’S HealthGurjit [phone] [facility] [phone] [facility] [phone] [facility] [phone] [facility] [phone] [facility] [phone] [facility] Association [phone] [facility] / [facility] [phone] [facility] [phone] [facility] [phone] [facility] [phone] [facility] [phone] TRANSPORTATION: Local [facility] may have applications for transportation programs and additional resources. ACCESS Services [phone] Transportation for seniors and disabled persons 7 days a week requiring 254 hr. advance reservation. Must apply and register for program lidia eligible. [employer] RIDRedZone Robotics [phone] or [phone] Transportation for seniors and persons with ADA card/metro disabled card in the [facility]. M-F only. Must register for services. ONE GENERATION [phone] Serves 65 years + in conjunction with city ride program. Must be registered with both programs. A to B Transport [phone] Provides wheelchair/gurney van service. Adult Medical Transport [phone] Accepts [facility] with prior authorization. Care Van [phone] Provides wheelchair Transport. [facility] Wide Transportation [phone] Provides gurney service [facility] [phone] Gurney Transport. All Town Transportation [phone] wheelchair & gurney transport GMD Transportation [phone] wheelchair & gurney transport [place] Non-Emergency Transport [phone] wheelchair & gurney transport [facility] Living [place] [phone] Short Term Transportation primarily for adults with disabilities on social security income. Nominal fee may apply and a reservation is required. [facility] Cab [phone] or [phone] [facility] [phone] [place] [address] Referral Services -[phone] For additional programs & services VETERANS RESOURCES: Submissions for Aid and Attendance should be done directly to Federal VA office locatd at : [address] [phone] National Caregiver Support Line [phone] [facility] Veterans Services Field Office [phone] [place] Department of [place] Affairs [phone] Pension Information [phone]
[2020-12-28] MEDS: HYDROCODONE/APAP 5/325MG TABLET PO PRN (16:31)
--- NOTE | 2020-12-28 16:46 | NUR ---
ms rn patient transferred to [facility],no distress noted,all needs attended.
== END 2020-12-28 16:39 | DRG 299 ==
LOC: ER 15:45 → MED 20:06
PROVIDERS: ADMIT Registered Nurse; ATTEND Nurse Practitioner Acute Care
PROC: 05H633Z Insertion of Infusion Device into Left Subclavian Vein, Percutaneous Approach (ICD-10-PCS; principal; 2020-12-25)
PROC: B547ZZA Ultrasonography of Left Subclavian Vein, Guidance (ICD-10-PCS; 2020-12-25)
DX: I87.313 Chronic venous hypertension (idiopathic) with ulcer of bilateral lower extremity (principal); N17.0 Acute kidney failure with tubular necrosis; L03.115 Cellulitis of right lower limb; L97.929 Non-pressure chronic ulcer of unspecified part of left lower leg with unspecified severity; L97.919 Non-pressure chronic ulcer of unspecified part of right lower leg with unspecified severity; N39.0 Urinary tract infection, site not specified; E87.1 Hypo-osmolality and hyponatremia; L03.116 Cellulitis of left lower limb; I89.0 Lymphedema, not elsewhere classified; D23.72 Other benign neoplasm of skin of left lower limb, including hip; D23.71 Other benign neoplasm of skin of right lower limb, including hip; D63.8 Anemia in other chronic diseases classified elsewhere; E66.01 Morbid (severe) obesity due to excess calories; E86.1 Hypovolemia; Z90.710 Acquired absence of both cervix and uterus; Z68.33 Body mass index [BMI] 33.0-33.9, adult; N18.9 Chronic kidney disease, unspecified; I12.9 Hypertensive chronic kidney disease with stage 1 through stage 4 chronic kidney disease, or unspecified chronic kidney disease; Z20.822 Contact with and (suspected) exposure to COVID-19; B96.20 Unspecified Escherichia coli [E. coli] as the cause of diseases classified elsewhere; M89.9 Disorder of bone, unspecified; Z82.49 Family history of ischemic heart disease and other diseases of the circulatory system; Z83.3 Family history of diabetes mellitus
CPT/HCPCS: 36410; 36415; 71045-TC; 76770-TC; 80048-TC; 80061-TC; 80076-TC; 80202-TC; 81001; 82728-TC; 83540-TC; 83605-TC; 83735-TC; 84100-TC; 84443-TC; 85025-TC; 85730-TC; 86850-TC; 87040-TC; 87070-TC; 87081-TC; 87086-TC; 87186-TC; 93970-TC; 97110-TC; 97112-TC; 97530-TC; A6253; A6403; C9803; G0378; J0696; J1650; J2543; J2916; J3370; J7030; J7050; J7060

== ENCOUNTER 2021-05-03 09:50 | Outpatient (CLI) | payer MEDICARE, OTHER ==
[~2021-05-03 09:50] MED LIST changes: -ALEN1TAB3 PO; -ASPI-1169 PO; +CEFT1VIA14 IJ; +CYAN-51 PO; +ENOX40DI SQ; -FERR325T28 PO; -GENT30CR TP; -Gentamicin Sulfate TP; -LACT1CAP72 PO; -LEVO500T2 PO; +MULT-447 PO; +PYRI100T10 PO; -RIFA300C2 PO
[2021-05-03] MEDS ORDERED: DAKINS HALF STRENGTH (0.25%) 480 ML BOTTLE ONE (10:09)
== END 2021-05-03 23:59 | disposition home or self-care (01) ==
LOC: WOU 09:50
PROVIDERS: ATTEND Podiatrist Foot & Ankle Surgery
DX: I87.313 Chronic venous hypertension (idiopathic) with ulcer of bilateral lower extremity (principal); L97.822 Non-pressure chronic ulcer of other part of left lower leg with fat layer exposed; L97.812 Non-pressure chronic ulcer of other part of right lower leg with fat layer exposed; I89.0 Lymphedema, not elsewhere classified; I73.9 Peripheral vascular disease, unspecified; R26.2 Difficulty in walking, not elsewhere classified; Z79.899 Other long term (current) drug therapy; I10 Essential (primary) hypertension
CPT/HCPCS: 11042; 11045

== ENCOUNTER 2021-07-05 19:02 | Inpatient (IN) | payer MEDICARE, OTHER ==
[~2021-07-05] VITALS: Ht 170.2 cm; Wt 112.5 kg
--- NOTE | 2021-07-05 20:40 | NUR ---
PATIENT BIBSELF C/O WOUNDS ON BILATERAL LEGS/FEET. PATIENT IS A/O X 4, RR EVEN AND UNLABORED, NO SOB NOTED. 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
[2021-07-05] MEDS ORDERED: PIPERACILLIN /TAZOBACTAM 3.375 G in IV D5W 50 ML IV ONE (21:00)
[2021-07-05] MEDS ORDERED: VANCOMYCIN 1 GM in IV D5W 250 ML IV ONE (21:00)
--- NOTE | 2021-07-05 21:16 | NUR ---
LABS COLLECTED AND SENT TO LAB. LAC IV NOT FUNCTIONAL, WILL TRY AGAIN
--- NOTE | 2021-07-05 21:21 | NUR ---
SECOND RN TO START IV LINE, NO LINE ESTABLISHED
[2021-07-05 21:39] LABS: BASOPHILS % (AUTO) 0.2 % (0.0-2.0); EOSINOPHILS % (AUTO) 2.6 % (0.0-6.0); HEMATOCRIT 34 % (33-45); HEMOGLOBIN 10.9 g/dL (11.5-14.8); LYMPHOCYTES # (AUTO) 1.4 K/uL (0.8-4.8); LYMPHOCYTES % (AUTO) 15.8 % (20.0-44.0); MEAN CORPUSCULAR HGB CONC 32 g/dl (31.0-36.0); MEAN CORPUSCULAR VOLUME 85 fL (82-100); MONOCYTES # (AUTO) 0.6 K/uL (0.1-1.30); MONOCYTES % (AUTO) 6.3 % (2.0-12.0); NEUTROPHILS # (AUTO) 6.6 K/uL (1.8-8.9); NEUTROPHILS % (AUTO) 75.1 % (43.0-81.0); PLATELET COUNT (AUTO) 408 K/uL (150-450); RED BLOOD CELL COUNT(AUTO) 4.06 MIL/uL (4.0-5.2); WHITE BLOOD COUNT (AUTO) 8.7 K/uL (4.3-11.0)
[2021-07-05 21:58] LABS: ALBUMIN 2.8 g/dL (3.4-5.0); BILIRUBIN,TOTAL 0.1 mg/dL (0.2-1.0); CALCIUM, SERUM 8.7 mg/dL (8.5-10.1); CREATININE 1.1 mg/dL (0.6-1.3); POTASSIUM 4.1 mmol/L (3.5-5.1); TOTAL PROTEIN, SERUM 7.9 g/dL (6.4-8.2)
[2021-07-05] MEDS ORDERED: PIPERACILLIN /TAZOBACTAM 3.375 G VIAL IV ONE (21:58)
[2021-07-05] MEDS ORDERED: VANCOMYCIN 1 GM VIAL ONE (21:58)
--- NOTE | 2021-07-05 22:13 | NUR ---
CALLED ERIKA PAGED ANDRAE
[2021-07-05] MEDS ORDERED: DEXTROSE 50%-WATER 50 ML DISP.SYRIN IV PRN (23:30)
[2021-07-05] MEDS ORDERED: ONDANSETRON HCL/PF 4 MG/2 ML VIAL IVP PRN (23:30)
[2021-07-05] MEDS ORDERED: hydrALAZINE HCL IV 20 MG VIAL IV PRN (23:30)
[2021-07-05] MEDS ORDERED: MORPHINE SULFATE INJ 2 MG/ML DISP.SYRIN IV PRN (23:30)
[2021-07-05] MEDS ORDERED: IV NS 0.9% 1,000 ML IV PRN (23:30)
[2021-07-05] MEDS ORDERED: VANCOMYCIN 1 GM in IV D5W 250 ML IV SCH (23:30)
[2021-07-05] MEDS ORDERED: INSULIN REGULAR, HUMAN 100 UNIT/ML 3 ML VIAL SQ PRN (23:30)
[2021-07-05] MEDS ORDERED: Z GUARD REMEDY 2 OZ OINT TP PRN (23:30)
[2021-07-05] MEDS ORDERED: ACETAMINOPHEN 325 MG TABLET PO PRN (23:30)
[2021-07-05] MEDS ORDERED: CEFEPIME 1 GM in IV D5W 50 ML IV SCH (23:30)
--- NOTE | 2021-07-06 00:55 | NUR ---
ROOM: 314-2 M/S
--- NOTE | 2021-07-06 00:59 | NUR ---
CALLED TO GIVE REPORT, NURSE IN PT ROOM, WILL CALL BACK
--- NOTE | 2021-07-06 01:14 | NUR ---
REPORT GIVEN TO CHARGE NURSE CHEYENNE
[2021-07-06 02:00] VITALS: BP 115/69
--- NOTE | 2021-07-06 02:01 | NUR ---
PATIENT TRANSFERRED, VSS, NO ACUTE DISTRESS NOTED.
[2021-07-06] MEDS ORDERED: DEXTROSE 50%-WATER 50 ML DISP.SYRIN IV PRN (02:15)
[2021-07-06] MEDS ORDERED: INSULIN REGULAR, HUMAN 100 UNIT/ML 3 ML VIAL SQ PRN (02:15)
[2021-07-06] MEDS ORDERED: ONDANSETRON HCL/PF 4 MG/2 ML VIAL IVP PRN (02:15)
[2021-07-06] MEDS ORDERED: IV NS 0.9% 1,000 ML IV PRN (02:15)
[2021-07-06] MEDS ORDERED: MORPHINE SULFATE INJ 2 MG/ML DISP.SYRIN IV PRN (02:15)
[2021-07-06] MEDS ORDERED: CEFEPIME 1 GM in IV D5W 50 ML IV SCH (02:15)
[2021-07-06] MEDS ORDERED: ACETAMINOPHEN 325 MG TABLET PO PRN (02:15)
[2021-07-06] MEDS ORDERED: hydrALAZINE HCL IV 20 MG VIAL IV PRN (02:15)
[2021-07-06] MEDS ORDERED: Z GUARD REMEDY 2 OZ OINT TP PRN (02:15)
--- NOTE | 2021-07-06 03:45 | NUR ---
SEA FOAM KISS MAKER NOTE RECEIVED PT FROM Xiomara @0155 VIA DANO ACCOMPANIED BY FISH ROE PROCESSOR. DX: BLE CELLULITIS. PT AWAKE, A/OX4, ABLE TO VERBALIZE ALL NEEDS. RESPIRATIONS EVEN/UNLABORED, ON ROOM AIR. IV SITE: R-AC #20G INTACT/PATENT/FLUSHES WELL. WITH BLE DRESSINGS IN PLACE, C/D/I. ORIENTED TO STAFF/ROOM/POLICIES. PT VERBALIZED UNDERSTANDING. PT IN NO ACUTE DISTRESS. SAFETY MEASURES IN PLACE, BED IN LOWEST LOCKED POSITION, S/R UPX2, CALL LIGHT WITHIN REACH. WILL CONT TO MONITOR.
[2021-07-06] MEDS ORDERED: CEFEPIME 1 GM VIAL ONE (03:52)
--- NOTE | 2021-07-06 06:26 | NUR ---
TEXTED DR. ATKINSON FOR MRI APPROVAL.
[2021-07-06] MEDS: BLOOD SUGAR DIAGNOSTIC 1 EACH STRIP IN SCH ×4 (06:41→21:26)
--- NOTE | 2021-07-06 06:55 | NUR ---
RN CLOSING NOTE PT RESTING IN BED, EASILY AWAKENS TO STIMULI. DENIES PAIN AT THIS TIME. DRESSINGS TO BLE IN PLACE, C/D/I. IV SITE TO R-AC INTACT, INFUSING NS @75ML/HR. PT IN NO ACUTE DISTRESS. SAFETY MEASURES MAINTAINED.
[2021-07-06] MEDS ORDERED: BLOOD SUGAR DIAGNOSTIC 1 EACH STRIP IN SCH (07:30)
--- NOTE | 2021-07-06 08:12 | NUR ---
RN MS OPENING NOTE Pt AWAKE AND RESTING IN BED, A/O X4 DENIES PAIN AT THIS TIME. BREATHING IS EVEN AND UNLABORED ON ROOM AIR. IV TO L-AC IS INTACT AND PATENT, INFUSING NS @75ML/HR. PT IN NO ACUTE DISTRESS. SAFETY MEASURES IN PLACE: BED IS LOCKED AND IN LOWEST POSITION, CALL LIGHT AND BEDSIDE TABLE ARE WITHIN REACH, 2 SIDE RAILS UP. WILL CONTINUE TO MONITOR THROUGHOUT THE SHIFT.
[2021-07-06 08:36] VITALS: BP 147/72
[2021-07-06] MEDS ORDERED: HEPARIN SODIUM, PORCINE 5000 UNITS/1 ML VIAL SQ SCH (09:00)
[2021-07-06 09:27] LABS: BASOPHILS # (AUTO) 0.1 K/uL (0.0-0.2); BASOPHILS % (AUTO) 0.8 % (0.0-2.0); EOSINOPHILS % (AUTO) 3.7 % (0.0-6.0); HEMATOCRIT 31 % (33-45); LYMPHOCYTES # (AUTO) 0.9 K/uL (0.8-4.8); LYMPHOCYTES % (AUTO) 11.2 % (20.0-44.0); MEAN CORPUSCULAR HGB CONC 33 g/dl (31.0-36.0); MEAN CORPUSCULAR VOLUME 84 fL (82-100); MONOCYTES # (AUTO) 0.6 K/uL (0.1-1.30); NEUTROPHILS # (AUTO) 6.4 K/uL (1.8-8.9); NEUTROPHILS % (AUTO) 77.3 % (43.0-81.0); PLATELET COUNT (AUTO) 360 K/uL (150-450); RED BLOOD CELL COUNT(AUTO) 3.68 MIL/uL (4.0-5.2); WHITE BLOOD COUNT (AUTO) 8.2 K/uL (4.3-11.0)
[2021-07-06] MEDS: HEPARIN SODIUM, PORCINE 5000 UNITS/1 ML VIAL SQ SCH ×2 (09:37→20:14)
[2021-07-06 09:56] LABS: ALBUMIN 2.4 g/dL (3.4-5.0); BILIRUBIN,TOTAL 0.4 mg/dL (0.2-1.0); CALCIUM, SERUM 8.2 mg/dL (8.5-10.1); CREATININE 1.2 mg/dL (0.6-1.3); MAGNESIUM 2.1 mg/dL (1.8-2.4); PHOSPHORUS 3.1 mg/dL (2.5-4.9); POTASSIUM 3.8 mmol/L (3.5-5.1); TOTAL PROTEIN, SERUM 6.9 g/dL (6.4-8.2)
[2021-07-06] MEDS ORDERED: VANCOMYCIN 1 GM in IV D5W 250 ML IV SCH (10:00)
[2021-07-06] MEDS ORDERED: LORAZEPAM 1 MG TABLET PO PRN (11:00)
--- NOTE | 2021-07-06 11:53 | NUR ---
MS RN NOTES- OFF FLOOR Pt IS A/O X4, ON ROOM AIR AND TOLERATING WELL. CURRENTLY NOT ON THE FLOOR, WENT FOR A MRI PROCEDURE.
--- NOTE | 2021-07-06 13:47 | NUR ---
MS RN NOTES- Pt BACK ON FLOOR Pt JUST CAME BACK FROM MRI PROCEDURE. Pt ALERT AND ORIENTED X4, TOLERATED PROCEDURE WELL. BREATHING IS EVEN AND UNLABORED AND ON ROOM AIR, NO APPARENT DISTRESS NOTED, NO C/O PAIN AT THIS TIME. WILL CONTINUE TO MONITOR.
[2021-07-06] MEDS: CEFEPIME 2 GM in IV D5W 100 ML IV SCH ×2 (14:09→20:17)
[2021-07-06 16:19] VITALS: BP 147/72
[2021-07-06] MEDS: VANCOMYCIN 1.25 GM in IV D5W 250 ML IV SCH (16:37)
--- NOTE | 2021-07-06 17:09 | NUR ---
MS/RN NOTES- PATIENT REFUSED ACCU CHECK PATIENT REFUSED ACCU CHECK. EXPLAINED BENEFIT, PATIENT UNDERSTOOD BUT STILL REFUSED.
--- NOTE | 2021-07-06 18:37 | NUR ---
RN MS CLOSING NOTES: Pt IS AWAKE AND RESTING IN BED, A/OX4. BREATHING IS EVEN, UNLABORED AND ON ROOM AIR. Pt IS TOLERATING WELL. Pt DENIES PAIN AT THIS TIME AND NO SIGNS OF DISTRESS AT THE MOMENT. DRESSINGS TO BLE ARE IN PLACE. ALL NEEDS HAVE BEEN MET. IV ACCESS TO L-AC IS INTACT, PATENT AND CURRENTLY INFUSING NS AT 75 mL/hr. SAFETY MEASURES ARE IN PLACE: BED IS LOCKED AND IN LOWEST POSITION, CALL LIGHT AND BED SIDE TABLE ARE WITHIN REACH, 2 SIDE RAILS UP. WILL ENDORSE TO ONCOMING SHIFT
--- NOTE | 2021-07-06 19:31 | NUR ---
MS/RN OPENING NOTES PT AWAKE IN BED, A/OX4, ABLE TO VERBALIZE ALL NEEDS. SHE DENIES PAIN AT THIS TIME RESPIRATIONS EVEN/UNLABORED, ON ROOM AIR. IV SITE: L-AC #20G INTACT/PATENT, RUNNING NS @75ML/HR. WITH DRESSINGS TO BLE IN PLACE, C/D/I. PT IN NO ACUTE DISTRESS. SAFETY MEASURES IN PLACE, BED IN LOWEST LOCKED POSITION, S/R UPX2, CALL LIGHT WITHIN REACH. WILL CONT TO MONITOR.
[2021-07-06 20:00] VITALS: BP 136/74
[2021-07-07] MEDS ORDERED: CEFEPIME 1 GM in IV D5W 50 ML IV SCH (05:00)
[2021-07-07] MEDS: CEFEPIME 2 GM in IV D5W 100 ML IV SCH ×3 (05:04→20:44)
[2021-07-07] MEDS: BLOOD SUGAR DIAGNOSTIC 1 EACH STRIP IN SCH ×4 (06:24→21:36)
--- NOTE | 2021-07-07 06:42 | NUR ---
MS/RN CLOSING NOTE PT RESTING IN BED, EASILY AWAKENS TO STIMULI. NO C/O PAIN AT THIS TIME. DRESSINGS TO BLE IN PLACE, C/D/I. IV SITE TO R-AC INTACT/PATENT. PT IN NO ACUTE DISTRESS. SAFETY MEASURES MAINTAINED. ALL NEEDS ATTENDED TO.
[2021-07-07 07:14] LABS: EOSINOPHILS % (AUTO) 5.8 % (0.0-6.0); HEMATOCRIT 27 % (33-45); HEMOGLOBIN 8.8 g/dL (11.5-14.8); LYMPHOCYTES % (AUTO) 20.2 % (20.0-44.0); MEAN CORPUSCULAR HGB CONC 33 g/dl (31.0-36.0); MEAN CORPUSCULAR VOLUME 84 fL (82-100); MONOCYTES # (AUTO) 0.4 K/uL (0.1-1.30); MONOCYTES % (AUTO) 8.8 % (2.0-12.0); NEUTROPHILS # (AUTO) 3.1 K/uL (1.8-8.9); NEUTROPHILS % (AUTO) 64.2 % (43.0-81.0); PLATELET COUNT (AUTO) 327 K/uL (150-450); RED BLOOD CELL COUNT(AUTO) 3.21 MIL/uL (4.0-5.2); WHITE BLOOD COUNT (AUTO) 4.9 K/uL (4.3-11.0)
[2021-07-07 07:17] LABS: CALCIUM, SERUM 7.9 mg/dL (8.5-10.1); CREATININE 1.2 mg/dL (0.6-1.3); POTASSIUM 4.1 mmol/L (3.5-5.1)
--- NOTE | 2021-07-07 07:30 | NUR ---
MS RN OPENING NOTES RECEIVED PATIENT ON BED, AWAKE AND A/O X4. ON ROOM AIR BREATHING EVENLY AND UNLABORED. NO SOB NOTED. NOT IN DISTRESS. WITH NO COMPLAINTS OF PAIN OR DISCOMFORT AT THIS TIME. WITH IV ACCESS AT LEFT AC G20, SALINE LOCKED, PATENT AND INTACT. SAFETY MEASURES IN PLACE. CALL LIGHT WITHIN REACH. BED ON LOWEST LOCKED POSITION, SIDE RAILS UP X2. WILL CONTINUE TO MONITOR.
[2021-07-07 08:21] VITALS: BP 118/72
[2021-07-07] MEDS: HEPARIN SODIUM, PORCINE 5000 UNITS/1 ML VIAL SQ SCH ×2 (08:40→20:45)
[2021-07-07 16:00] VITALS: BP 123/70
[2021-07-07] MEDS: VANCOMYCIN 1.25 GM in IV D5W 250 ML IV SCH (16:51)
--- NOTE | 2021-07-07 19:38 | NUR ---
MS RN CLOSING NOTES PATIENT ON BED, AWAKE AND A/O X4. ON ROOM AIR BREATHING EVENLY AND UNLABORED. NO SOB NOTED. NOT IN DISTRESS. WITH NO COMPLAINTS OF PAIN OR DISCOMFORT AT THIS TIME. WITH IV ACCESS AT RIGHT HAND G22, SALINE LOCKED, PATENT AND INTACT. DUE MEDS GIVEN. SAFETY MEASURES IN PLACE. CALL LIGHT WITHIN REACH. BED ON LOWEST LOCKED POSITION, SIDE RAILS UP X2. WILL CENDORSE TO NEXT SHIFT FOR LISA.
[2021-07-07 20:00] VITALS: BP 129/60
--- NOTE | 2021-07-07 20:00 | NUR ---
RECEIVED PATIENT IN BED, ALERT/ORIENTED X4, ROOM AIR, NO COMPLAIN OF PAIN, BEDREST, USES BEDPAN, BLE WITH BULKY DRESSING, PERIPHERAL IV LINE INSERTED TO RIGHT HAND. KEPT SAFE, WILL CONTINUE TO MONITOR.
--- NOTE | 2021-07-07 22:00 | NUR ---
REFUSED ACCUCHECK, A1C 5.2, PER PATIENT "I HAVE NO DIABETES."
[2021-07-08] MEDS: CEFEPIME 2 GM in IV D5W 100 ML IV SCH ×3 (04:23→21:26)
--- NOTE | 2021-07-08 05:49 | NUR ---
ALERT/ORIENTED X4, STABLE ON ROOM AIR, NO COMPLAIN OF PAIN, DID NOT REQUEST FOR PAIN MEDICATION, BLE CELLULITIS WITH LYMPHEDEMA, BULKY DRESSING, VANCOMYCIN Q24 HRS AND MAXIPIME Q8HRS, PARASITE IDENTIFICATION PENDING, MRI LOWER RIGHT AND LEFT LEG WO CONTRAST, PREVIOUS MRI OF FOOT ANKLE SHOWS NO OSTEOMYELITIS, CHELE MIDLINE #18 HL.
[2021-07-08] MEDS: BLOOD SUGAR DIAGNOSTIC 1 EACH STRIP IN SCH ×4 (06:49→21:32)
[2021-07-08 07:12] LABS: CALCIUM, SERUM 8.3 mg/dL (8.5-10.1); CREATININE 1.2 mg/dL (0.6-1.3); POTASSIUM 4.1 mmol/L (3.5-5.1)
[2021-07-08 08:00] VITALS: BP 129/79
[2021-07-08 08:16] VITALS: BP 129/79
[2021-07-08] MEDS: HEPARIN SODIUM, PORCINE 5000 UNITS/1 ML VIAL SQ SCH ×2 (10:42→21:31)
[2021-07-08 16:00] VITALS: BP 149/90
[2021-07-08 16:23] VITALS: BP 149/90
[2021-07-08] MEDS: VANCOMYCIN 1.25 GM in IV D5W 250 ML IV SCH (19:02)
--- NOTE | 2021-07-08 19:30 | NUR ---
RN OPENING NOTE PATIENT IN BED, SITTING UP. PATIENT IS ABLE TO MAKE NEEDS KNOWN, A/O X 4. PATIENT IS ON RA, TOLERATING WELL. PATIENT'S BLE BTK WRAPPED IN KERLIX, C/D/I. PATIENT HAS A CHELE MIDLINE, TKO, PATENT AND INTACT. NO REPORTS OF PAIN OR DISCOMFORT AT THIS TIME. SAFETY MEASURES IN PLACE: BED LOCKED AND IN LOWEST POSITION, CALL LIGHT WITHIN REACH, SIDE RAILS UP. WILL MONITOR PATIENT CLOSELY.
[2021-07-08 20:00] VITALS: BP 117/79
[2021-07-09] MEDS: CEFEPIME 2 GM in IV D5W 100 ML IV SCH ×3 (05:05→21:08)
--- NOTE | 2021-07-09 06:43 | NUR ---
BS 90 MG/DL. WILL MONITOR PATIENT CLOSELY FOR HYPOGLYCEMIA. NO COVERAGE GIVEN.
--- NOTE | 2021-07-09 06:56 | NUR ---
RN CLOSING NOTE PATIENT NOT IN ANY APPARENT DISTRESS, WOUND CARE RENDERED TO BLE. IV ACCESS PATENT AND INTACT TKO. NO REPORTS OF ANY PAIN OR DISCOMFORT. SAFETY MEASURES IN PLACE: BED LOCKED AND IN LOWEST POSITION, CALL LIGHT WITHIN REACH, SIDE RAILS UP. ALL NEEDS MET AND ATTENDED. ALL ORDERS CARRIED OUT. WILL ENDORSE TO DAY SHIFT NURSE FOR LISA.
--- NOTE | 2021-07-09 07:13 | NUR ---
WOUND CARE CONSULT: RECEIVED CONSULT FOR LOWER LEGS. PT FOLLOWED BY PODIATRIC SURGEON FOR LOWER EXTREMITIES. DEFER TO DPM CURRENTLY ON CASE. WILL SEE PRN. DISCUSSED SKIN PROTECTION WITH NURSING STAFF.
--- NOTE | 2021-07-09 07:36 | NUR ---
RN OPENING NOTES Patient seen comfortably lying in bed, no SOB, no apparent distress noted, breathing even and unlabored, denies any pain or discomfort at this time, no grimacing. Call light left within reach, safety precautions in place, brakes locked, side rails up X 2, will monitor closely for any changes.
[2021-07-09 08:08] LABS: CREATININE 1.3 mg/dL (0.6-1.3); POTASSIUM 4.2 mmol/L (3.5-5.1)
[2021-07-09 08:10] VITALS: BP 128/81
[2021-07-09] MEDS: HEPARIN SODIUM, PORCINE 5000 UNITS/1 ML VIAL SQ SCH ×2 (09:04→21:09)
[2021-07-09] MEDS: BLOOD SUGAR DIAGNOSTIC 1 EACH STRIP IN SCH ×3 (12:00→22:00)
[2021-07-09 17:05] VITALS: BP 127/74
--- NOTE | 2021-07-09 18:17 | NUR ---
RN CLOSING NOTES Patient lying in bed, AO X 4, breathing even and unlabored, no SOB, no dizziness, no palpitations, denies any pain or discomfort, no apparent distress noted. All medications given per MD order, tolerating well. Patient preferred not to have her blood sugar checked, explained risks and benefits thrice, still refused, hospitalist made aware, no s/s of hypo/hyperglycemia noted, no change in level of consciousness, no tremors. All needs attended, kept clean and dry, safety precautions in place, brakes locked, side rails up X 2, call light left within reach, will endorse to next shift for continuity of care.
--- NOTE | 2021-07-09 19:00 | NUR ---
MS RN OPENING NOTE RECEIVED PT AWAKE IN BED. A/OX4. PT IS ON ROOM AIR. NO SOB NOTED. NO S/S RESPIRATORY DISTRESS. PT IS AMBULATORY. PT HAS NO C/O PAIN AT THIS TIME. IV ACCESS IN RIGHT UPPER ARM MIDLINE SL, IV IS INTACT, PATENT, AND FLUSHING WELL. SAFETY MEASURES MAINTAINED . BED IN LOWEST LOCKED POSITION, HOB ELEVATED, SIDE RAILS UP X2. CALL LIGHT AND TABLE WITHIN REACH. WILL CONTINUE WITH PLAN OF CARE.
[2021-07-09 20:00] VITALS: BP 124/84
[2021-07-10] MEDS: CEFEPIME 2 GM in IV D5W 100 ML IV SCH ×2 (04:14→12:20)
--- NOTE | 2021-07-10 06:30 | NUR ---
MS RN CLOSING NOTE PT REMAINED STABLE THROUGHOUT SHIFT. WILL ENDORSE TO ONCOMING RN FOR LISA
[2021-07-10] MEDS: BLOOD SUGAR DIAGNOSTIC 1 EACH STRIP IN SCH ×2 (06:38→11:35)
[2021-07-10 08:14] VITALS: BP 132/77
[2021-07-10] MEDS: HEPARIN SODIUM, PORCINE 5000 UNITS/1 ML VIAL SQ SCH (08:50)
[2021-07-10] MEDS ORDERED: CEFE2FRO IV (09:51)
--- NOTE | 2021-07-10 10:00 | NUR ---
m/s quarter doper: md visit seen by dr. muller with order to d'c to snf. order acknowledged. case management making arrangement. pt asleep at this time. will let her know when awaken.
[2021-07-10 10:06] LABS: CALCIUM, SERUM 7.7 mg/dL (8.5-10.1); CREATININE 1.2 mg/dL (0.6-1.3); POTASSIUM 4.1 mmol/L (3.5-5.1)
--- NOTE | 2021-07-10 11:00 | NUR ---
m/s forging press operator: notes pt awaken and made aware re: d'c to snf at 1400 today. eta at 1400. left message to sister re: dc to snf.
--- NOTE | 2021-07-10 13:00 | NUR ---
m/s nephrologist: notes ekg done and showed result to dr. covington and informed me to add her recommendation about levaquin 750mg po q 24 hours x 4 days. report given to felipe (rn) ([facility]) for continuity of care.
--- NOTE | 2021-07-10 14:00 | NUR ---
m/s mri ct tech: notes discharge instructions given to pt and verbalized understanding. all concerns and questions answered.
--- NOTE | 2021-07-10 14:29 | NUR ---
m/s box icer: notes discharge to snf in stable condition with all d'c papers and valuables accompanied by 2 ambulance crew.
== END 2021-07-10 14:30 | DRG 602 ==
LOC: ER 19:18 → MED 07-06 02:32
PROVIDERS: ADMIT Internal Medicine; ATTEND Internal Medicine
PROC: 05H633Z Insertion of Infusion Device into Left Subclavian Vein, Percutaneous Approach (ICD-10-PCS; principal; 2021-07-08)
PROC: B547ZZA Ultrasonography of Left Subclavian Vein, Guidance (ICD-10-PCS; 2021-07-08)
DX: L03.116 Cellulitis of left lower limb (principal); N17.0 Acute kidney failure with tubular necrosis; I87.313 Chronic venous hypertension (idiopathic) with ulcer of bilateral lower extremity; L97.829 Non-pressure chronic ulcer of other part of left lower leg with unspecified severity; L97.819 Non-pressure chronic ulcer of other part of right lower leg with unspecified severity; D68.69 Other thrombophilia; L03.115 Cellulitis of right lower limb; I89.0 Lymphedema, not elsewhere classified; I10 Essential (primary) hypertension; I87.2 Venous insufficiency (chronic) (peripheral); D63.8 Anemia in other chronic diseases classified elsewhere; Z20.822 Contact with and (suspected) exposure to COVID-19; Z90.710 Acquired absence of both cervix and uterus; M79.662 Pain in left lower leg; M79.661 Pain in right lower leg; Z73.6 Limitation of activities due to disability; F22 Delusional disorders; Z68.38 Body mass index [BMI] 38.0-38.9, adult; E66.01 Morbid (severe) obesity due to excess calories; Z82.49 Family history of ischemic heart disease and other diseases of the circulatory system; Z83.3 Family history of diabetes mellitus
CPT/HCPCS: 36415; 73718-TC; 73721-TC; 80048-TC; 80053-TC; 80076-TC; 80202-TC; 82962-TC; 83605-TC; 83735-TC; 84100-TC; 85025-TC; 85652-TC; 85730-TC; 86140-TC; 87040-TC; 87070-TC; 87081-TC; 87186-TC; 93970-TC; 97530-TC; A6253; A6403; C9803; G0378; J0692; J1644; J2543; J3370; J7030; J7050; J7060